=== PATIENT | female | born 1950 | race African-American/Black ===

== ENCOUNTER 2018-11-28 09:21 | Emergency (ER) | payer OTHER ==
--- OUTSIDE RECORDS SUMMARY | 2018-11-28 09:23 | XMS REPORT | Clinical Summary ---
:1950 Author Organization [facility] [employer] Address [address] [place] [address] Care Team Providers Name Role Phone Oscar Andrade MD Primary Care Provider Allergies Not on File Medications Medication Sig Dispensed Refills Start Date End Date Status carvedilol (COREG) TK 1 T PO BID 3 10/16/2016 Active 25 MG tablet WF amLODIPine 3 10/03/2016 Active (NORVASC) 10 mg tablet potassium chloride TK 1 T PO QD 3 09/29/2016 Active (K-DUR) 10 MEQ CR tablet RESTASIS 0.05 % 0 10/22/2016 Active ophthalmic emulsion multivitamin Take 1 capsule 0 Active capsule by mouth daily. BIOTIN ORAL Take by mouth. 0 Active UNABLE TO FIND [place] 7 0 Active Qunol- ultra coq10 [facility] [place] Zinc Balance aspirin (ECOTRIN) Take 81 mg by 0 Active 81 MG enteric mouth daily. coated tablet losartan-hydrochlor Take 1 tablet 10 08/29/2018 Active othiazide (HYZAAR) by mouth 50-12.5 mg per daily. tablet FLAXSEED OIL ORAL Take by mouth. 0 Active candesartan-hydroch TK 1 T PO QD 3 10/16/2016 10/30/2018 Discontinued lorothiazid (ATACAND HCT) 32-12.5 mg per tablet Active Problems Problem Noted Date Multinodular goiter (nontoxic) 11/05/2017 Encounters Date Type Specialty Care Team Description 10/30/2018 Lab Lab Wilfredo Raygoza MD Multinodular goiter (nontoxic) 10/30/2018 Office Visit Endocrinology Wilfredo Raygoza MD Multinodular goiter (nontoxic) (Primary Dx) 10/10/2018 Orders Only Endocrinology Addis Emery MA Multinodular goiter (nontoxic) (Primary Dx) after 11/27/2017 Family History Medical History Relation Name Comments Cancer Mother breast- due to estrogen Relation Name Status Comments Father Alive Mother Alive eye pressure Social History Tobacco Use Types Packs/Day Years Used Date Never Smoker Smokeless Tobacco: Never Used Alcohol Use Drinks/Week oz/Week Comments Yes 1 Glasses of wine 0.6 once a week Sex Assigned at Date Recorded Not on file Job Start Date Occupation Industry Not on file Not on file Not on file Travel History Travel Start Travel End No recent travel history available. Last Filed Vital Signs Vital Sign [place] Time Taken Blood Pressure 144/89 10/30/2018 1:42 PM CDT Pulse 78 10/30/2018 1:42 PM CDT Temperature - - Respiratory Rate - - Oxygen Saturation - - Inhaled Oxygen Concentration - - Weight 91.1 kg (200 lb 12.8 oz) 10/30/2018 1:42 PM CDT Height 162.6 cm (5' 4") 10/30/2018 1:42 PM CDT Body Mass Index 34.47 10/30/2018 1:42 PM CDT Plan of Treatment Date Type Specialty Care Team Description 05/04/2019 Office Visit Endocrinology Wilfredo Raygoza MD [address] [facility] [address] [place] [address] [phone] Health Maintenance Due Date Last Done Comments BREAST CANCER SCREENING 2001 COLONOSCOPY SCREENING 2001 SHINGLES VACCINES (#1) 2001 65+ PNEUMOCOCCAL VACCINE (1 of 2 - PCV13) 2016 INFLUENZA VACCINE 12/18/2018 Procedures Procedure Name Priority Date/Time Associated Diagnosis Comments T4, FREE Routine 10/30/2018 1:57 Multinodular goiter Results for this PM CDT (nontoxic) procedure are in the results section. THYROID STIMULATING Routine 10/30/2018 1:57 Multinodular goiter Results for this HORMONE PM CDT (nontoxic) procedure are in the results section. US THYROID Routine 10/17/2018 2:05 Multinodular goiter Results for this PM CDT (nontoxic) procedure are in the results section. US THYROID Routine 11/29/2017 9:30 Multinodular goiter Results for this AM CDT (nontoxic) procedure are in the results section. after 11/27/2017 Results Thyroid stimulating hormone (10/30/2018 1:57 PM CDT) TSH 1.410 0.450 - 4.500 uIU/mL [facility] Specimen Blood Narrative Performed At Performed at:01 - [facility] [address] [place], [place] [id number] Textile Converter: Blade Gusman MD, Phone:[phone] Performing Organization Address [facility] Phone Number [facility] T4, free (10/30/2018 1:57 PM CDT) T4, free 1.18 0.82 - 1.77 ng/dL [facility] Specimen Blood Narrative Performed At Performed at:01 - [facility] [address] [place], [place] [id number] Textile Converter: Blade Gusman MD, Phone:[phone] Performing Organization Address [facility] Phone Number [facility] US Thyroid (10/17/2018 2:05 PM CDT)Only the most recent of2 resultswithin the time period is included. Specimen Narrative Performed At EXAMINATION:US THYROID [facility] CLINICAL HISTORY:E04.2 Nontoxic multinodular goiter, Multinodular goiter COMPARISON:11/29/2017 IMPRESSION: 1.The right third lobe measures 5.8 x 3.0 x 3.0 cm. The left thyroid lobe measures 4.6 x 1.7 x 1.7 cm. 2.The thyroid gland is diffusely heterogeneous. Slight increase in size of large heterogeneous solid nodule in the lower pole the right thyroid measuring 4.5 x 3.0 cm. Stable versus slight increase in size of complex cystic nodule in the upper pole of the right thyroid measuring 6.6 mm. A 3.5 mm colloid cystic nodule is stable. 3.2 small approximately 3-4 mm cystic nodules in the left thyroid are stable. No new nodules. [facility]-[id number] Procedure Note Hm Interface, Radiology Results Incoming - 10/17/2018 4:29 PM CDT EXAMINATION: US THYROID CLINICAL HISTORY:E04.2 Nontoxic multinodular goiter, Multinodular goiter COMPARISON: 11/29/2017 IMPRESSION: 1. The right third lobe measures 5.8 x 3.0 x 3.0 cm. The left thyroid lobe measures 4.6 x 1.7 x 1.7 cm. 2. The thyroid gland is diffusely heterogeneous. Slight increase in size of large heterogeneous solid nodule in the lower pole the right thyroid measuring 4.5 x 3.0 cm. Stable versus slight increase in size of complex cystic nodule in the upper pole of the right thyroid measuring 6.6 mm. A 3.5 mm colloid cystic nodule is stable. 3. 2 small approximately 3-4 mm cystic nodules in the left thyroid are stable. No new nodules. [facility]-[id number] Performing Organization Address City/State/Zipcode Phone Number [facility] [address] [place] [address] after 11/27/2017 Insurance Payer Benefit Plan / Group Subscriber ID Effective Phone Address Type Dates [facility] xxxxxxxxx 2017-Prese PPO COMMERCIAL nt HMO/POS/PPO MEDICARE MEDICARE PART A AND B xxxxxxxxxx 2016-Pres [place], [place] Medicare ent (Home) [place] [address] Advance Directives Patient has advance care planning documents on file. For more information, please contact:Alonso Briggs[address] [place] [address]
--- NOTE | 2018-11-28 10:03 | RAD REPORT ---
EXAM DESCRIPTION: RAD - Chest Pa And Lat (2 Views) - 11/28/2018 9:58 am CLINICAL HISTORY: COUGH Chest pain. COMPARISON: Chest Pa And Lat (2 Views) dated 06/24/2017; Chest Single View dated 05/17/2017; CHEST PA AND LAT 2 VIEW dated 05/28/2013; CHEST SINGLE VIEW dated 11/02/2011 FINDINGS: Small linear opacities are seen in the lingula suggesting a mild infiltrate/ pneumonia. Th e lungs are otherwise clear. The heart is normal in size. No displaced fractures.
[2018-11-28] MEDS ORDERED: HYDROCODONE/CHLORPHEN 5 ML/OSYR ONE (10:32)
--- NOTE | 2018-11-28 10:42 | EDPHYS ---
Physician Documentation [facility] Name: Peg Henriquez Age: 68 yrs Sex: Female : 1950 Arrival Date: 11/28/2018 Time: 09:24 Bed 15 Private MD: ED Physician Jimmie Sim HPI: 11/28 09:44 This 68 yrs old Black Female presents to ER via Ambulatory with complaints of Cough. pm1 09:44 The patient or guardian reports cough. Onset: The symptoms/episode began/occurred 2 pm1 week(s) ago. Severity of symptoms: in the emergency department the symptoms are unchanged. Modifying factors: The symptoms are alleviated by nothing, the symptoms are aggravated by nothing. Associated signs and symptoms: Pertinent positives: rhinorrhea, bilateral watery eyes. Subjective fever yesterday, Pertinent negatives: chest pain, ear ache, nausea, sore throat, vomiting. The patient has experienced a previous episode, many years ago, walking pneumonia. The patient has not recently seen a physician. Patient with cough for two weeks and came to make sure did not have pneumonia. Historical: - Allergies: 09:49 No Known Allergies; iw - Home Meds: 09:49 amlodipine 10 mg tab 1 tab once daily [Active]; candesartan 32 mg Oral tab 1 tab once iw daily [Active]; carvedilol 25 mg Oral tab 1 tab 2 times per day [Active]; potassium chloride 10 mEq Oral cpER 1 cap once daily [Active]; - PMHx: 09:49 Hypertension; iw - PSHx: 09:49 Hysterectomy; iw - Immunization history:: Adult Immunizations up to date. - Social history:: Smoking status: Patient/guardian denies using tobacco. - Ebola Screening: : Patient negative for fever greater than or equal to 101.5 degrees Fahrenheit, and additional compatible Ebola Virus Disease symptoms Patient denies exposure to infectious person Patient denies travel to an Ebola-affected area in the 21 days before illness onset No symptoms or risks identified at this time. ROS: 10:00 ENT: Negative for injury, pain, and discharge, Neck: Negative for injury, pain, and pm1 swelling, Cardiovascular: Negative for chest pain, palpitations, and edema. 10:00 Abdomen/GI: Negative for abdominal pain, nausea, vomiting, diarrhea, and constipation, Back: Negative for injury and pain, : Negative for injury, bleeding, discharge, and swelling, MS/Extremity: Negative for injury and deformity, Skin: Negative for injury, rash, and discoloration, Neuro: Negative for headache, weakness, numbness, tingling, and seizure. 10:00 Constitutional: Positive for subjective fever yesterday. Has not taken any antipyretics or cough medication today or yesterday, Negative for body aches, poor PO intake. 10:00 Eyes: Positive for tearing bilaterally, Negative for itching, matting, pain. 10:00 Respiratory: Positive for cough, Negative for shortness of breath, wheezing. Exam: 10:00 Constitutional: This is a well developed, well nourished patient who is awake, alert, pm1 and in no acute distress. Head/Face: Normocephalic, atraumatic. Eyes: Pupils equal round and reactive to light, extra-ocular motions intact. Lids and lashes normal. Conjunctiva and sclera are non-icteric and not injected. Cornea within normal limits. Periorbital areas with no swelling, redness, or edema. ENT: Nares patent. No nasal discharge, no septal abnormalities noted. Tympanic membranes are normal and external auditory canals are clear. Oropharynx with no redness, swelling, or masses, exudates, or evidence of obstruction, uvula midline. Mucous membranes moist. Neck: Trachea midline, no thyromegaly or masses palpated, and no cervical lymphadenopathy. Supple, full range of motion without nuchal rigidity, or vertebral point tenderness. No Meningismus. Chest/axilla: Normal chest wall appearance and motion. Nontender with no deformity. No lesions are appreciated. Cardiovascular: Regular rate and rhythm with a normal S1 and S2. No gallops, murmurs, or rubs. No pulse deficits. Respiratory: Lungs have equal breath sounds bilaterally, clear to auscultation and percussion. No rales, rhonchi or wheezes noted. No increased work of breathing, no retractions or nasal flaring. Abdomen/GI: Soft, non-tender, with normal bowel sounds. No distension or tympany. No guarding or rebound. No evidence of tenderness throughout. Back: No spinal tenderness. No costovertebral tenderness. Full range of motion. Skin: Warm, dry with normal turgor. Normal color with no rashes, no lesions, and no evidence of cellulitis. MS/ Extremity: Pulses equal, no cyanosis. Neurovascular intact. Full, normal range of motion. 10:00 Neuro: Orientation: is normal, Motor: is normal, moves all fours, Sensation: is normal, no obvious gross deficits. Vital Signs: 09:36 BP 119 / 75; Pulse 80; Resp 18; Temp 98.9; Pulse Ox 98% ; Weight 90.72 kg; Height 5 ft. ms 4 in. (162.56 cm); Pain 8/10; 09:36 Body Mass Index 34.33 (90.72 kg, 162.56 cm) ms MDM: 09:31 Patient medically screened. pm1 10:14 Data reviewed: vital signs. Data interpreted: Pulse oximetry: on room air is 98 %. pm1 Interpretation: normal. Counseling: I had a detailed discussion with the patient and/or guardian regarding: radiology results, pending flu swab results. 10:41 Counseling: I had a detailed discussion with the patient and/or guardian regarding: the pm1 historical points, exam findings, and any diagnostic results supporting the discharge/admit diagnosis, lab results, radiology results, the need for outpatient follow up, to return to the emergency department if symptoms worsen or persist or if there are any questions or concerns that arise at home. 11/28 09:44 Order name: Flu; Complete Time: 10:39 pm1 11/28 09:44 Order name: Chest Pa And Lat (2 Views) XRAY; Complete Time: 10:11 pm1 Administered Medications: 10:30 Not Given (Provider discretion, patient does not have a ride home.): Tussionex ae4 Pennkinetic ER 5 ml PO once 10:38 Drug: Rocephin (cefTRIAXone) 1 grams Route: IM; Site: right gluteus; ae4 10:56 Follow up: Response: No adverse reaction ae4 Disposition: 12:08 Co-signature as Attending Physician, Jimmie iSm MD. rn Disposition: 11/28/18 10:41 Discharged to Home. Impression: Pneumonia, unspecified organism. - Condition is Stable. - Discharge Instructions: Community-Acquired Pneumonia, Adult. - Prescriptions for Zithromax Z- Tino 250 mg Oral Tablet - take 1 tablet by ORAL route as directed for 5 days Day 1 - take two (2) tablets one time. Day 2, 3, 4 , 5 take one (1) tablet once daily.; 6 tablet. Guaifenesin AC 10- 100 mg/5 mL Oral Liquid - take 10 milliliter by ORAL route every 4 hours As needed; 240 milliliter. - Medication Reconciliation Form, Thank You Letter, Antibiotic Education, Prescription Opioid Use form. - Follow up: Emergency Department; When: As needed; Reason: Worsening of condition. Follow up: Private Physician; When: 2 - 3 days; Reason: Recheck today's complaints, Continuance of care, Re-evaluation by your physician. - Problem is new. - Symptoms have improved. Signatures: Dispatcher [employer] EDMS Carol Mcfadden RN RN Jimmie Kaufman MD MD rn Marinas, Patrick, [employer] pm1 Joshua Ross RN RN ae4 Corrections: (The following items were deleted from the chart) 10:56 10:41 11/28/2018 10:41 Discharged to Home. Impression: Pneumonia, unspecified organism. ae4 Condition is Stable. Forms are Medication Reconciliation Form, Thank You Letter, Antibiotic Education, Prescription Opioid Use. Follow up: Emergency Department; When: As needed; Reason: Worsening of condition. Follow up: Private Physician; When: 2 - 3 days; Reason: Recheck today's complaints, Continuance of care, Re-evaluation by your physician. Problem is new. Symptoms have improved. pm1
--- NOTE | 2018-11-28 10:42 | ER ---
Nurse's Notes [facility] Name: Peg Henriquez Age: 68 yrs Sex: Female : 1950 Arrival Date: 11/28/2018 Time: 09:24 Bed 15 Private MD: Diagnosis: Pneumonia, unspecified organism Presentation: 11/28 09:30 Presenting complaint: Patient states: cough X 2 weeks, now productive, has been taking OTC meds. Transition of care: patient was not received from another setting of care. Onset of symptoms was November 14, 2018. Risk Assessment: Do you want to hurt yourself or someone else? Patient reports no desire to harm self or others. Initial Sepsis Screen: Does the patient meet any 2 criteria? No. Patient's initial sepsis screen is negative. Does the patient have a suspected source of infection? No. Patient's initial sepsis screen is negative. Care prior to arrival: None. 09:30 Method Of Arrival: Ambulatory iw 09:30 Acuity: [facility] 4 iw Triage Assessment: 10:53 General: Appears in no apparent distress. comfortable. General: Behavior is calm, ae4 cooperative, appropriate for age. Pain: Complains of pain in Patient reports chest pain with cough. EENT: No signs and/or symptoms were reported regarding the EENT system. Neuro: Level of Consciousness is awake, alert, obeys commands, Oriented to person, place, time, situation, Appropriate for age. Cardiovascular: Heart tones S1 S2 present Patient's skin is warm and dry. Rhythm is regular. Respiratory: Airway is patent Respiratory effort is even, unlabored, relaxed, Respiratory pattern is regular, symmetrical, Breath sounds are clear bilaterally. Respiratory: Reports cough that is productive, Green mucous. GI: : No signs and/or symptoms were reported regarding the genitourinary system. Derm: Skin is normal. Musculoskeletal: No signs and/or symptoms reported regarding the musculoskeletal system. Historical: - Allergies: :49 No Known Allergies; iw - Home Meds: :49 amlodipine 10 mg tab 1 tab once daily [Active]; candesartan 32 mg Oral tab 1 tab once iw daily [Active]; carvedilol 25 mg Oral tab 1 tab 2 times per day [Active]; potassium chloride 10 mEq Oral cpER 1 cap once daily [Active]; - PMHx: 09:49 Hypertension; iw - PSHx: 09:49 Hysterectomy; iw - Immunization history:: Adult Immunizations up to date. - Social history:: Smoking status: Patient/guardian denies using tobacco. - Ebola Screening: : Patient negative for fever greater than or equal to 101.5 degrees Fahrenheit, and additional compatible Ebola Virus Disease symptoms Patient denies exposure to infectious person Patient denies travel to an Ebola-affected area in the 21 days before illness onset No symptoms or risks identified at this time. Screenin:53 Abuse screen: Denies threats or abuse. Nutritional screening: No deficits noted. ae4 Tuberculosis screening: No symptoms or risk factors identified. Fall Risk None identified. Assessment: 10:32 Reassessment: Patient appears in no apparent distress at this time. Patient and/or ae4 family updated on plan of care and expected duration. Pain level reassessed. General: Behavior is calm, cooperative. Neuro: Level of Consciousness is awake, alert, obeys commands, Oriented to person, place, time, situation, Appropriate for age. Vital Signs: 09:36 BP 119 / 75; Pulse 80; Resp 18; Temp 98.9; Pulse Ox 98% ; Weight 90.72 kg; Height 5 ft. ms 4 in. (162.56 cm); Pain 8/10; 09:36 Body Mass Index 34.33 (90.72 kg, 162.56 cm) ms ED Course: 09:24 Patient arrived in ED. as 09:31 Peter Encinas NP is PHCP. pm1 09:31 Jimmie Sim MD is Attending Physician. pm1 09:32 Joshua Ross RN is Primary Nurse. ae4 09:49 Triage completed. iw 09:50 Arm band placed on. iw 09:55 X-ray completed. Patient tolerated procedure well. Patient moved to radiology via ml wheelchair. Patient moved back from radiology. 09:57 Chest Pa And Lat (2 Views) XRAY In Process Unspecified. EDMS 10:34 Bed in low position. Call light in reach. Side rails up X 1. Pulse ox on. NIBP on. ae4 10:55 No provider procedures requiring assistance completed. Patient did not have IV access ae4 during this emergency room visit. Administered Medications: 10:30 Not Given (Provider discretion, patient does not have a ride home.): Tussionex ae4 Pennkinetic ER 5 ml PO once 10:38 Drug: Rocephin (cefTRIAXone) 1 grams Route: IM; Site: right gluteus; ae4 10:56 Follow up: Response: No adverse reaction ae4 Outcome: 10:41 Discharge ordered by MD. pm1 10:55 Discharged to home ambulatory. ae4 10:55 Condition: stable 10:55 Discharge instructions given to patient, Instructed on discharge instructions, follow up and referral plans. medication usage, Demonstrated understanding of instructions, Prescriptions given X 2. 10:56 Patient left the ED. ae4 Signatures: Dispatcher [employer] EDXi Rutledge Irene, Priscilla Jones RN, ms, Melissa ml Marinas, Patrick, [employer] DIRECTOR pm1 Joshua Ross RN RN ae4
[2018-11-28] MEDS ORDERED: WATER FOR INJ,STERILE 10 ML ONE (10:44)
[2018-11-28] MEDS ORDERED: CEFTRIAXONE 1000 MG/VIAL ONE (10:44)
[2018-11-28 11:03] VITALS: BP 119/75; TEMP 98.9; O2SAT 98
== END 2018-11-28 10:56 | disposition home or self-care (01) ==
LOC: ER 09:21
DX: J18.9 Pneumonia, unspecified organism (principal); I10 Essential (primary) hypertension
CPT/HCPCS: 71046; 87804; 96372; 99284

== ENCOUNTER 2019-03-07 09:18 | Emergency (ER) | payer OTHER ==
[2019-03-07 11:08] LABS: Absolute Lymphocytes (CBC) 0.4 K/uL (0.7-4.9); Basophils % 0.2 % (0-1.3); Hematocrit 43.1 % (36.0-45.0); Lymphocytes % 3.6 % (15.3-44.8); MPV 7.6 fL (7.6-11.3); RBC Red Blood Cell Count 4.95 M/uL (3.86-4.86)
[2019-03-07 11:16] LABS: Protime INR 0.98
[2019-03-07] MEDS ORDERED: NA CHLORIDE 0.9% 1,000 ML ONE (11:20)
[2019-03-07] MEDS ORDERED: ONDANSETRON 4 MG/2 ML VIAL ONE (11:20)
[2019-03-07] MEDS ORDERED: FAMOTIDINE 20 MG/2 ML VIAL IV ONE (11:21)
[2019-03-07 11:31] LABS: ALT/SGPT 26 U/L (12-78); AST/SGOT 18 U/L (15-37); Albumin 3.3 g/dL (3.4-5.0); Alkaline Phosphatase 81 U/L (45-117); BUN Blood Urea Nitrogen 19 mg/dL (7-18); Bicarbonate 27 mmol/L (21-32); Bilirubin Direct 0.1 mg/dL (0-0.2); Bilirubin Total 0.5 mg/dL (0.2-1.0); Glucose Level 109 mg/dL (74-106); Lipase 128 U/L (73-393); Magnesium 2.5 mg/dL (1.8-2.4); Potassium 3.4 mmol/L (3.5-5.1); Protein, Total 7.1 g/dL (6.4-8.2); Sodium Level 138 mmol/L (136-145); Troponin (Emerg Dept Use Only) < 0.02 ng/mL (0.0-0.045)
[2019-03-07 13:28] LABS: Blood Morphology Comment NOT SEEN (NOT SEEN); Platelet Estimate ADEQ; Urine White Blood Cell Casts OK
[2019-03-07] MEDS ORDERED: POTASSIUM 25 MEQ EFFERV TAB ONE (14:08)
--- NOTE | 2019-03-07 14:08 | RAD REPORT ---
EXAM DESCRIPTION: CT - Abdomen Pelvis W Contrast - 03/07/2019 12:09 pm CLINICAL HISTORY: nausea/vomitingabdominal pain, nausea and vomiting COMPARISON: None. TECHNIQUE: Biphasic, helical CT imaging of the abdomen and pelvis was performed following 100 ml non -ionic IV contrast. No oral contrast. All CT scans are performed using dose optimization technique as appropriate and may include automated exposure control or mA/KV adjustment according to patient size. FINDINGS: No suspicious findings in the lung bases. The liver, spleen, and pancreas show no suspicious findings. Gallbladder and biliary tree are also wi thout suspicious finding. Symmetric renal function is seen with no hydronephrosis or suspicious renal mass. No pyelonephritis o r acute parenchymal process. No bladder abnormalities. No adrenal abnormalities. King of the stomach are prominent. No discrete masses seen. Gastric assessment is limited due to the absence of content within the lumen. No dilated small bowel loops. There are fluid-filled loops dist ally. No acute colon process seen. No free air, free fluid or inflammatory stranding. No hernia, mas s or bulky lymphadenopathy. Uterus is absent. Ovaries are absent or atrophic. No adnexal abnormality. Phleboliths are seen along the pelvic floor. No suspicious bony findings. IMPRESSION: No bowel obstruction, free air or surgically emergent finding. A few fluid-filled distal small bowel loops could indicate a nonspecific enteritis.
--- NOTE | 2019-03-07 14:15 | ER ---
Nurse's Notes [facility] Name: Peg Henriquez Age: 68 yrs Sex: Female : 1950 Arrival Date: 03/07/2019 Time: 09:20 Bed 17 Private MD: Diagnosis: Nausea and vomiting Presentation: 03/07 09:28 Presenting complaint: Patient states: Nausea and vomiting that began yesterday evening. ss Patient now reports fatigue. Transition of care: patient was not received from another setting of care. Onset of symptoms was March 06, 2019. Risk Assessment: Do you want to hurt yourself or someone else? Patient reports no desire to harm self or others. Initial Sepsis Screen: Does the patient meet any 2 criteria? No. Patient's initial sepsis screen is negative. Does the patient have a suspected source of infection? No. Patient's initial sepsis screen is negative. Note Pt believes she may have food poisoning from something she ate at work yesterday. Care prior to arrival: None. 09:28 Method Of Arrival: Ambulatory ss 09:28 Acuity: [facility] ss Historical: - Allergies: 09:29 No Known Allergies; ss - Home Meds: 09:35 amlodipine 10 mg tab 1 tab once daily [Active]; candesartan 32 mg Oral tab 1 tab once rb1 daily [Active]; carvedilol 25 mg Oral tab 1 tab 2 times per day [Active]; potassium chloride 10 mEq Oral cpER 1 cap once daily [Active]; - PMHx: 09:29 Hypertension; ss - PSHx: 09:29 Hysterectomy; ss - Immunization history:: Adult Immunizations up to date. - Social history:: Smoking status: Patient/guardian denies using tobacco. - Ebola Screening: : Patient denies exposure to infectious person Patient denies travel to an Ebola-affected area in the 21 days before illness onset. Screenin:35 Abuse screen: Denies threats or abuse. Nutritional screening: No deficits noted. rb1 Tuberculosis screening: No symptoms or risk factors identified. Fall Risk None identified. Assessment: 09:35 General: Appears in no apparent distress. comfortable, Behavior is calm, cooperative, rb1 Reports fatigue for since last night. Denies fever. Pain: Denies pain. Neuro: Level of Consciousness is awake, alert, obeys commands, Oriented to person, place, time, situation. Cardiovascular: Capillary refill < 3 seconds is brisk in bilateral fingers. Respiratory: Airway is patent Respiratory effort is even, unlabored, Respiratory pattern is regular, symmetrical. GI: Abdomen is non-distended, Reports diarrhea, nausea, vomiting, since last night Patient currently denies nausea and vomiting today. : No signs and/or symptoms were reported regarding the genitourinary system. Derm: Skin is dry, Skin is normal, Skin temperature is warm. 10:35 Reassessment: Patient appears in no apparent distress at this time. No changes from rb1 previously documented assessment. 11:30 Reassessment: Patient appears in no apparent distress at this time. Patient and/or rb1 family updated on plan of care and expected duration. Pain level reassessed. Patient is alert, oriented x 3, equal unlabored respirations, skin warm/dry/pink. 12:30 Reassessment: Patient appears in no apparent distress at this time. No changes from rb1 previously documented assessment. at bedside. 13:38 Reassessment: patient is back from ct scan. mg2 14:41 Reassessment: po challenge tolerated. patient felt better. mg2 Vital Signs: 09:29 BP 138 / 90; Pulse 107; Resp 16; Temp 98.2; Pulse Ox 97% ; Weight 90.72 kg; Height 5 ss ft. 3 in. (160.02 cm); Pain 0/10; 10:29 BP 126 / 73; Pulse 99; Resp 17; Pulse Ox 96% on R/A; rb1 11:29 BP 129 / 71; Pulse 99; Resp 16; Pulse Ox 97% on R/A; rb1 12:30 BP 121 / 66; Pulse 98; Resp 18; Pulse Ox 97% on R/A; rb1 13:38 Pulse 101; Resp 18; Pulse Ox 100% on R/A; mg2 14:42 BP 122 / 78; Pulse 90; Resp 18; Temp 98.1(O); Pulse Ox 100% on R/A; Pain 0/10; mg2 09:29 Body Mass Index 35.43 (90.72 kg, 160.02 cm) ED Course: 09:20 Patient arrived in ED. as 09:29 Triage completed. ss 09:29 Arm band placed on left wrist. ss 09:32 Wilner Pavon PA is PHCP. cp 09:32 Tate Mora MD is Attending Physician. cp 09:35 Patient has correct armband on for positive identification. Bed in low position. Call rb1 light in reach. Side rails up X 1. classroom monitor on. Pulse ox on. NIBP on. Warm blanket given. 10:45 Sophia Bustamante, RN is Primary Nurse. rb1 10:55 Initial lab(s) drawn, by me, sent to lab. Inserted saline lock: 22 gauge in right jb1 antecubital area, using aseptic technique. Blood collected. 12:05 CT completed. Patient tolerated procedure well. Patient moved back from CT. bq 12:09 CT Abd/Pelvis - IV Contrast Only In Process Unspecified. EDMS 13:39 No provider procedures requiring assistance completed. mg2 14:42 IV discontinued, intact, bleeding controlled, No redness/swelling at site. Pressure mg2 dressing applied. Administered Medications: 11:32 Drug: Zofran 4 mg Route: IVP; Site: right antecubital; rb1 14:37 Follow up: Response: No adverse reaction; Marked relief of symptoms mg2 11:32 Drug: Pepcid 20 mg Route: IVP; Site: right antecubital; rb1 14:37 Follow up: Response: No adverse reaction; Marked relief of symptoms mg2 11:32 Drug: NS 0.9% 500 ml Route: IV; Rate: bolus; Site: right antecubital; rb1 12:33 Follow up: IV Status: Completed infusion rb1 13:37 Drug: NS 0.9% 500 ml Route: IV; Rate: 125 ml/hr; Site: left antecubital; mg2 14:13 Drug: Potassium Effervescent Tablet 25 mEq Route: PO; mg2 14:37 Follow up: Response: No adverse reaction; Medication administered at discharge. mg2 Output: 13:51 Urine: 1ml (Voided); Total: 1ml. rb1 Outcome: 14:15 Discharge ordered by . cp 14:43 Discharged to home ambulatory, with family. mg2 14:43 Condition: stable 14:43 Discharge instructions given to patient, family, Instructed on discharge instructions, follow up and referral plans. medication usage, Demonstrated understanding of instructions, follow-up care, medications, Prescriptions given X 1. 14:43 Patient left the ED. mg2 Signatures: Dispatcher [employer] EDMS James Zuniga jb1 Swetha Reyez Amelia as Smirch, Shelby, RN RN ss Wilner Pavon PA PA cp Sophia Bustamante RN RN rb1 Ramon Borrero RN RN mg2 Corrections: (The following items were deleted from the chart) 10:52 09:35 GI: Abdomen is non-distended, Reports diarrhea, nausea, vomiting, since last rb1 night rb1
--- NOTE | 2019-03-07 14:16 | EDPHYS ---
Physician Documentation [facility] Name: Peg Henriquez Age: 68 yrs Sex: Female : 1950 Arrival Date: 03/07/2019 Time: 09:20 Bed 17 Private MD: ED Physician Tate Mora HPI: 03/07 10:10 This 68 yrs old Black Female presents to ER via Ambulatory with complaints of cp Vomiting/Diarrhea, Weakness. 10:10 The patient presents to the emergency department with nausea, that is mild, vomiting, cp that is intermittent, diarrhea, that is intermittent. Onset: The symptoms/episode began/occurred yesterday. Possible causes: bad food exposure, [place] at work. Associated signs and symptoms: Pertinent negatives: abdominal pain, constipation, dysuria, fever, GI bleeding, active vomiting. Severity of symptoms: in the emergency department the symptoms have improved moderately. Historical: - Allergies: 09:29 No Known Allergies; ss - Home Meds: 09:35 amlodipine 10 mg tab 1 tab once daily [Active]; candesartan 32 mg Oral tab 1 tab once rb1 daily [Active]; carvedilol 25 mg Oral tab 1 tab 2 times per day [Active]; potassium chloride 10 mEq Oral cpER 1 cap once daily [Active]; - PMHx: 09:29 Hypertension; ss - PSHx: 09:29 Hysterectomy; ss - Immunization history:: Adult Immunizations up to date. - Social history:: Smoking status: Patient/guardian denies using tobacco. - Ebola Screening: : Patient denies exposure to infectious person Patient denies travel to an Ebola-affected area in the 21 days before illness onset. ROS: 10:15 Constitutional: Positive for poor PO intake, Negative for body aches, chills, fever. cp 10:15 Eyes: Negative for injury, pain, redness, and discharge. cp 10:15 ENT: Negative for drainage from ear(s), ear pain, sore throat, difficulty swallowing, difficulty handling secretions. 10:15 Cardiovascular: Negative for chest pain, edema, palpitations. 10:15 Respiratory: Negative for cough, shortness of breath, wheezing. 10:15 Abdomen/GI: Positive for nausea, vomiting, and diarrhea, Negative for abdominal pain, constipation, hematemesis, black/tarry stool, rectal bleeding. 10:15 Back: Negative for pain at rest, pain with movement, radiated pain. 10:15 : Negative for urinary symptoms. 10:15 Neuro: Positive for weakness, Negative for altered mental status, dizziness, headache. 10:15 All other systems are negative. Exam: 10:20 Constitutional: The patient appears in no acute distress, alert, awake, cp non-diaphoretic, non-toxic, well developed, well nourished. 10:20 Head/Face: Normocephalic, atraumatic. cp 10:20 Eyes: Periorbital structures: appear normal, Conjunctiva: normal, no exudate, no injection, Sclera: no appreciated abnormality, Lids and lashes: appear normal, bilaterally. 10:20 ENT: External ear(s): are unremarkable, Nose: is normal, Mouth: Lips: moist, Oral mucosa: pink and intact, moist, Posterior pharynx: is normal, airway is patent, no erythema, no exudate. 10:20 Chest/axilla: Inspection: normal, Palpation: is normal, no crepitus, no tenderness. 10:20 Cardiovascular: Rate: tachycardic, Rhythm: regular, Edema: is not appreciated, JVD: is not appreciated. 10:20 Respiratory: the patient does not display signs of respiratory distress, Respirations: normal, no use of accessory muscles, no retractions, no splinting, no tachypnea, labored breathing, is not present, Breath sounds: are clear throughout, no decreased breath sounds, no stridor, no wheezing. 10:20 Abdomen/GI: Inspection: abdomen appears normal, Bowel sounds: active, all quadrants, Palpation: soft, in all quadrants, nontender, in all quadrants, voluntary guarding, is not appreciated, involuntary guarding, is not appreciated. 10:20 Back: CVA tenderness, is absent. 10:20 Skin: no rash present. 10:20 Neuro: Orientation: to person, place \T\ time. Mentation: is normal, Cerebellar function: is grossly normal, Motor: moves all fours, strength is normal, Sensation: is normal. 13:05 ECG was reviewed by the Attending Physician. cp Vital Signs: 09:29 BP 138 / 90; Pulse 107; Resp 16; Temp 98.2; Pulse Ox 97% ; Weight 90.72 kg; Height 5 ss ft. 3 in. (160.02 cm); Pain 0/10; 10:29 BP 126 / 73; Pulse 99; Resp 17; Pulse Ox 96% on R/A; rb1 11:29 BP 129 / 71; Pulse 99; Resp 16; Pulse Ox 97% on R/A; rb1 12:30 BP 121 / 66; Pulse 98; Resp 18; Pulse Ox 97% on R/A; rb1 13:38 Pulse 101; Resp 18; Pulse Ox 100% on R/A; mg2 14:42 BP 122 / 78; Pulse 90; Resp 18; Temp 98.1(O); Pulse Ox 100% on R/A; Pain 0/10; mg2 09:29 Body Mass Index 35.43 (90.72 kg, 160.02 cm) ss MDM: 09:35 Patient medically screened. cp 10:00 Differential diagnosis: gastritis, diverticulitis, viral gastroenteritis, cp gastroenteritis. 14:42 Data reviewed: vital signs, nurses notes, lab test result(s), radiologic studies, and cp as a result, I will discharge patient. 03/07 10:04 Order name: Basic Metabolic Panel; Complete Time: 11:45 cp 03/07 11:46 Interpretation: Normal except: K 3.4; GLUC 109; BUN 19; GFR 80. cp 03/07 10:04 Order name: CBC with Diff; Complete Time: 13:52 cp 03/07 11:46 Interpretation: Normal except: WBC 11.2; RBC 4.95; SYBIL% 91.7; LYM% 3.6; NEUT A 10.3; cp LYMA 0.4. 03/07 10:04 Order name: LFT's; Complete Time: 11:45 cp 03/07 13:53 Interpretation: Normal except: ALB 3.3; GLOB 3.8; A/G 0.9. cp 03/07 10:04 Order name: Magnesium; Complete Time: 11:45 cp 03/07 13:52 Interpretation: MG 2.5; Reviewed. cp 03/07 10:04 Order name: PT-INR; Complete Time: 11:45 cp 03/07 10:04 Order name: Troponin (emerg Dept Use Only); Complete Time: 11:45 cp 03/07 10:04 Order name: Lipase; Complete Time: 11:45 cp 03/07 11:46 Order name: CT Abd/Pelvis - IV Contrast Only cp 03/07 13:28 Order name: CBC Smear Scan; Complete Time: 13:52 EDMS 03/07 10:04 Order name: EKG; Complete Time: 10:05 cp 03/07 10:04 Order name: Cardiac monitoring; Complete Time: 10:56 cp 03/07 10:04 Order name: EKG - Nurse/Tech; Complete Time: 13:35 cp 03/07 10:04 Order name: IV Saline Lock; Complete Time: 10:56 cp 03/07 10:04 Order name: Labs collected and sent; Complete Time: 10:56 cp 03/07 10:04 Order name: O2 Per Protocol; Complete Time: 10:45 cp 03/07 10:04 Order name: O2 Sat Monitoring; Complete Time: 10:45 cp 03/07 14:05 Order name: PO challenge; Complete Time: 14:13 cp EC:05 Rate is 101 beats/min. Rhythm is regular. MN interval is normal. QRS interval is cp normal. QT interval is normal. Interpreted by me. Reviewed by me. Administered Medications: 11:32 Drug: Zofran 4 mg Route: IVP; Site: right antecubital; rb1 14:37 Follow up: Response: No adverse reaction; Marked relief of symptoms mg2 11:32 Drug: Pepcid 20 mg Route: IVP; Site: right antecubital; rb1 14:37 Follow up: Response: No adverse reaction; Marked relief of symptoms mg2 11:32 Drug: NS 0.9% 500 ml Route: IV; Rate: bolus; Site: right antecubital; rb1 12:33 Follow up: IV Status: Completed infusion rb1 13:37 Drug: NS 0.9% 500 ml Route: IV; Rate: 125 ml/hr; Site: left antecubital; mg2 14:13 Drug: Potassium Effervescent Tablet 25 mEq Route: PO; mg2 14:37 Follow up: Response: No adverse reaction; Medication administered at discharge. mg2 Disposition: 15:39 Co-signature as Attending Physician, Tate Mora MD. gs Disposition: 03/07/19 14:15 Discharged to Home. Impression: Nausea and vomiting. - Condition is Stable. - Discharge Instructions: Dehydration, Adult, Nausea and Vomiting, Adult. - Prescriptions for Zofran 4 mg Oral Tablet - take 1 tablet by ORAL route every 12 hours As needed; 20 tablet. - Medication Reconciliation Form, Thank You Letter, Antibiotic Education, Prescription Opioid Use form. - Follow up: Private Physician; When: 2 - 3 days; Reason: Recheck today's complaints. - Problem is new. - Symptoms have improved. Signatures: Dispatcher [employer] EDMS Maggie Alvarez RN RN Wilner Jose PA PA cp Barber, Rebecca, RN RN rb1 Tate Mora MD MD Ramon Borrero RN RN mg2 Corrections: (The following items were deleted from the chart) 14:43 14:15 03/07/2019 14:15 Discharged to Home. Impression: Nausea and vomiting. Condition mg2 is Stable. Forms are Medication Reconciliation Form, Thank You Letter, Antibiotic Education, Prescription Opioid Use. Follow up: Private Physician; When: 2 - 3 days; Reason: Recheck today's complaints. Problem is new. Symptoms have improved. cp
[2019-03-07 14:58] VITALS: O2SAT 100
[2019-03-07 14:59] VITALS: BP 122/78; TEMP 98.1
--- NOTE | 2019-03-08 06:11 | EKG ---
Test Date: 2019-03-07 Test Time: 12:57:14 Waxer Tender: NEW MEASUREMENT RESULTS: Intervals: Rate: 101 DE: 194 QRSD: 72 QT: 336 QTc: 435 [place]: P: 39 DE: 194 QRS: -12 T: 30 INTERPRETIVE STATEMENTS: Sinus tachycardia Possible Left atrial enlargement Borderline ECG Compared to ECG 11/02/2011 10:46:10 Sinus rhythm no longer present ST (T wave) deviation no longer present Electronically Signed On 03-08-19 06:09:51 CDT by Lionel De Guzman
== END 2019-03-07 14:43 | disposition home or self-care (01) ==
LOC: ER 09:18
DX: R11.2 Nausea with vomiting, unspecified (principal); I10 Essential (primary) hypertension
CPT/HCPCS: 96361; 93005; 85025; 80048; 36415; 83735; 85610; 80076; 84484; 83690; 74177; 96375; 96374; 99285; Q9967; J7030; J2405

== ENCOUNTER 2020-12-16 09:30 | Emergency (ER) | payer OTHER, MEDICARE ==
--- OUTSIDE RECORDS SUMMARY | 2020-12-16 09:33 | XMS REPORT | Continuity of Care Document ---
:1950 Author Organization [facility] t Address [address] Zheng[address] [place] [address] Care Team Providers Name Role Phone Dequan Andrade MD Primary Care Physician Jaret CARDOSO MDemetris Attending Clinician Rupert LINCOLN Attending Clinician Unavailable Payers Payer Name Policy Type Policy Effective Date Expiration Date Sour ce Number MEDICAREMEDICARE PART [id number] [facility] [id number] 2016 [place] [id number] 2020 [facility] [id number] 00:00:00 Hos pital 2020-PresentComme rcial Problems Condition Condition Condition Status Onset Resolution Last Treating Co mments Source Name Details Category Date Date Treatment Clinician Date 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 Family History Family Member Diagnosis Comments Start Date Stop Date Source Natural father [facility] Natural mother Cancer [facility] Social History Social Habit Start Date Stop Date Quantity Comments Source Exposure to Not sure [facility] SARS-CoV-2 [facility] (event) Tobacco use and 2020-12-15 2020-12-15 Never used [facility] exposure 00:00:00 00:00:00 Hospital Alcohol intake 2020-12-15 2020-12-15 Current drinker [facility] 00:00:00 00:00:00 of alcohol Hospital (finding) Alcohol Comment 2016-10-26 2016-10-26 once a week [facility] 00:00:[facility] 00:[facility]:00 Hospital Sex Assigned At [birth year] [facility] 00:00:00 00:00:00 Hospital Smoking Status Start Date Stop Date Source Never smoker [facility] Medications Ordered Filled Start Stop Current Ordering Indication Dosage Frequency Signature Comments Components Source Medication Medication Date Date Medication? Clinician (SIG) Name Name multivitami Yes 1{capsu QD Take 1 M ethodi n capsule 12-15 le} capsule by st 15:07: mouth [facility] 16 daily. l BIOTIN ORAL Yes Take by Met hodi 12-[address] 15:07: Hospita 16 l UNABLE TO Yes [place] 7 [facility] di FIND 12-[address] 15:07: Balance [facility] 16 l aspirin Yes 81mg QD Take 81 mg Meth moncho (ECOTRIN) 12-[address] 81 MG 15:07: daily. Hospita enteric 16 l coated tablet FLAXSEED Yes Take by Method i OIL ORAL 12-[address] 15:07: Hospita 16 l TURMERIC Yes Take by Method i ORAL 12-[address] 15:07: Hospita 16 l calcium Yes Take by Method[facility] carbonate/v 12-[address] itamin D3 15:07: Hospita (CALTRATE 16 l 600 PLUS D ORAL) hydrALAZINE Yes 20mg Q.5D Take 20 mg [facility] (APRESOLINE [address] ) 10 MG 00:00: (two) Hospita tablet 00 times a l day. Xiidra 5 % Yes 1[drp] Q.5D Administer [facility] dropperette 09-[address] 00:00: both eyes [facility]ospita 00 2 (two) l times a day. Meloxicam Meloxicam 0 2020- No Madhu [address] [facility] 11-[facility]16 [facility] losartan-hy Yes 1{tbl} QD Take 1 Me thodi drochloroth 4-[address] iazide 00:00: mouth [facility]ospita (HYZAAR) 00 daily. l 50-12.5 mg per tablet RESTASIS Yes [facility] 0.05 % 6-05 st ophthalmic 00:00: Hospita emulsion 00 l carvedilol Yes TK 1 T PO Me thodi (COREG) 25 5-[address] MG tablet 00:00: Hospita 00 l amLODIPine Yes [facility] (NORVASC) 5-17 st 10 mg 00:00: Hospita tablet 00 l potassium Yes TK 1 T PO Met hodi chloride 5-[address] (K-DUR) 10 00:00: Hospita MEQ CR 00 l tablet Amlodipine Amlodipine Yes Madhu not [facility] Besylate Besylate [facility] defined [facility] Klor-Con 10 Klor-Con 10 Yes Madhu not [facility] Colon defined [facility] Carvedilol Carvedilol Yes Madhu not [facility] defined [facility] Baby Baby Yes Madhu not [facility] Aspirin Aspirin [facility] Cephalexin Cephalexin Yes Madhu not [facility] Colon defined [facility] Guaifenesin Guaifenesin Yes Madhu not [facility] -Codeine -Codeine [facility] defined [facility] Azithromyci Azithromyci Yes Madhu not [facility] n n Colon defined [facility]ics Xiidra Xiidra Yes Madhu not [facility] Colon defined [facility] Losartan Losartan Yes Madhu not [facility] Potassium-H Potassium-H [facility] defined [facility] Vital Signs Vital Name Observation Time Observation Value Comments Source Systolic blood 2020-12-15 15:03:00 132 mm[Hg] [facility] pressure Diastolic blood 2020-12-15 15:03:00 73 mm[Hg] [facility] pressure Heart rate 2020-12-15 15:03:00 78 /min [facility] Body height 2020-12-15 15:03:00 162.6 cm [facility] Body weight 2020-12-15 15:03:00 92.715 kg [facility] BMI 2020-12-15 15:03:00 35.09 kg/m2 [facility] Procedures Procedure Date / Time Performing Clinician Source Performed THYROID PEROXIDASE 2020-12-15 15:35[facility]ABOL[facility] 2020-12-15 15:35:00 Wilfredo Raygoza [facility] PANEL T4, FREE 2020-12-15 15:35:00 Wilfredo Raygoza [facility] THYROID STIMULATING 2020-12-15 15:35:00 Wilfredo Raygoza [facility] HORMONE US THYROID 2020-11-25 18:28:53 Wilfredo Raygoza [facility] Plan of Care Planned Activity Planned Date Details Comments Source Future Scheduled Test Hepatitis C screening [facility] (procedure) [code = 678297251] Future Scheduled Test BREAST CANCER SCREENING [facility] [code = BREAST CANCER SCREENING] Future Scheduled Test COLONOSCOPY SCREENING [facility] [code = COLONOSCOPY SCREENING] Future Scheduled Test SHINGLES VACCINES (#1) [facility] [code = SHINGLES VACCINES (#1)] Future Scheduled Test 65+ PNEUMOCOCCAL [facility] VACCINE (1 of 1 - PPSV23) [code = 65+ PNEUMOCOCCAL VACCINE (1 of 1 - PPSV23)] Future Scheduled Test INFLUENZA VACCINE [code [facility] = INFLUENZA VACCINE] Encounters Start End Encounter Admission Attending Care Care Encounter Source Date/Time Date/Time Type Type Clinicians Facility Department ID 2020-12-15 2020-12-15 Office Jaret, 1.2.840.1 [id number] [place] 09:59:03 10:19:03 Visit Wilfredo Dooley [address]16.1.[address] 3.430.2.7 Hospit a .3.520456 l .8 2020-12-15 2020-12-15 Outpatient [facility] [id number] [place] 00:00:00 00:00:[address] 2020-12-15 2020-12-15 Outpatient PETAK, [facility] [id number] [place] 00:00:00 00:00:00 WILFREDO [address] 2020-12-15 2020-12-15 Travel 1.2.840.1 [id number] [facility] 00:00:00 00:00:[address] 3.430.2.7 0.2.7.3.698 Ho spita .3.737830 084.8 l .8 2020-11-25 2020-11-25 Outpatient PETSD, [facility] [id number] [address] [place] 00:00:00 00:00:00 WILFREDO [address] 2020-11-25 2020-11-25 Travel 1.2.840.1 [id number] [facility] 00:00:00 00:00:[address] 3.430.2.7 0.2.7.3.698 Ho spita .3.963013 084.8 l .8 2020-11-14 2020-11-14 James Emery 1.2.840.1 [id number] [facility] 00:00:00 00:00:00 Only Addis [address]013[address]1.[address] 3.430.2.7 Hospit a .3.342239 l .8 2020-11-11 2020-11-11 Silvestre Emery 1.2.840.1 [id number] [facility] 00:00:00 00:00:[address] 3.430.2.7 Hospit a .3.840681 l .8 2020-11-07 2020-11-07 Outpatient [facility] [id number] [facility] 2020-11-01 2020-11-01 Outpatient [facility] [id number] [facility] 2020-10-24 2020-10-24 Outpatient [facility] [id number] [facility] 2020-09-12 2020-09-12 Outpatient [facility] [id number] [facility] 2020-09-12 2020-09-12 Outpatient [facility] [id number] [facility] 2020-09-06 2020-09-06 Outpatient [facility] [id number] [facility] 2020-06-28 2020-06-28 Outpatient [facility] [id number] [facility] 2020-04-21 2020-04-21 Outpatient [facility] [id number] [facility] 2020-04-07 2020-04-07 Outpatient [facility] [id number] [facility] 2020-04-01 2020-04-01 Outpatient [facility] [id number] [facility] 2020-03-21 2020-03-21 Outpatient [facility] [id number] [facility] 2020-03-03 2020-03-03 Outpatient [facility] [id number] [facility] 2019-11-03 2019-11-03 [facility] [id number] 14:30:00 14:30:00 [facility] 2019-07-10 2019-07-10 Outpatient [facility] [id number] [place] 00:00:00 00:00:00 WILFREDO [address] Results This patient has no known results.
[2020-12-16] MEDS ORDERED: NA CHLORIDE 0.9% 1,000 ML ONE (10:39)
[2020-12-16 10:47] LABS: Absolute Lymphocytes (CBC) 1.7 K/uL (0.7-4.9); Basophils % 0.4 % (0-1.3); Hematocrit 38.8 % (36.0-45.0); Lymphocytes % 30.9 % (15.3-44.8); RBC Red Blood Cell Count 4.48 M/uL (3.86-4.86)
[2020-12-16 10:51] LABS: Protime INR 1.04
[2020-12-16 11:05] LABS: ALT/SGPT 30 U/L (12-78); AST/SGOT 22 U/L (15-37); Albumin 3.4 g/dL (3.4-5.0); Alkaline Phosphatase 69 U/L (45-117); BUN Blood Urea Nitrogen 16 mg/dL (7-18); Bicarbonate 28 mmol/L (21-32); Bilirubin Direct 0.1 mg/dL (0-0.2); Bilirubin Total 0.4 mg/dL (0.2-1.0); Glucose Level 91 mg/dL (74-106); Lipase 63 U/L (73-393); Magnesium 2.3 mg/dL (1.8-2.4); NT PRO-BNP 43 pg/mL (<125); Potassium 3.3 mmol/L (3.5-5.1); Protein, Total 6.9 g/dL (6.4-8.2); Sodium Level 138 mmol/L (136-145); Troponin (Emerg Dept Use Only) < 0.02 ng/mL (0.0-0.045)
[2020-12-16 11:08] LABS: SARS-COV-2 RT PCR NEGATIVE (NEGATIVE)
--- NOTE | 2020-12-16 11:44 | RAD REPORT ---
EXAM DESCRIPTION: Evelyn Single View12/16/2020 10:56 am CLINICAL HISTORY: Cough COMPARISON: 2019 FINDINGS: The lungs appear clear of acute infiltrate. The heart is mildly enlarged IMPRESSION: No acute abnormalities displayed
[2020-12-16 11:49] LABS: Urine Blood Negative (Negative); Urine Glucose Negative (Negative); Urine Protein Negative (Negative)
--- NOTE | 2020-12-16 12:04 | RAD REPORT ---
EXAM DESCRIPTION: CT - Chest For Pe Angio - 12/16/2020 11:24 am CLINICAL HISTORY: Shortness of breath COMPARISON: None. TECHNIQUE: Dynamically enhanced axial 3 mm thick images of the chest were obtained during administra tion of <100> mL Isovue 370 IV contrast. Coronal and oblique reconstruction images were generated and reviewed. Exam utilizes a protocol for optimal evaluation of pulmonary arterial tree. Maximum intensity projections 3D imaging was utilized All CT scans are performed using dose optimization technique as appropriate and may include automated exposure control or mA/KV adjustment according to patient size. FINDINGS: A pulmonary embolus is not seen. A thoracic aortic aneurysm is not noted. A pleural effusion is not seen. A pericardial effusion is not seen. A lung consolidation is not present. 7 millimeter subpleural nodule left lower lobe. 30 millimeter nodule containing a small calcification abuts the posterior aspect of the lower pole ri ght lobe of the thyroid gland IMPRESSION: Negative for a pulmonary embolism. 7 millimeter subpleural nodule left lower lobe. A followup CT chest in 6 months recommended to assess stability 30 millimeter nodule containing a small calcification abuts the posterior aspect of the lower pole ri ght lobe of the thyroid gland. Nonemergent thyroid ultrasound is recommended
[2020-12-16] MEDS ORDERED: POTASSIUM 25 MEQ EFFERV TAB ONE (12:05)
--- NOTE | 2020-12-16 12:20 | ER ---
Nurse's Notes [facility] Name: Peg Henriquez Age: 70 yrs Sex: Female : 1950 Arrival Date: 12/16/2020 Time: 09:32 Bed 25 Private MD: Dorian Andrade C Diagnosis: Dyspnea;Cough;UTI/ Urinary tract infection, site not specified;Solitary pulmonary nodule-7 mm left lower lobe Presentation: 12/16 09:35 Chief complaint: Patient states: i have a history of pneumonia. about a week ago i tw2 started with a slight shortness of breathe. my nose is stopped up. i think it could be allergies because of my history. i just decided to come because my said he seemed like i got tired moving around and walking. Coronavirus screen: congestion, runny nose, shortness of breath, Client presents with at least one sign or symptom that may indicate coronavirus-19. Standard/surgical mask placed on the client. Provider contacted for isolation considerations. Ebola Screen: Patient denies travel to an Ebola-affected area in the 21 days before illness onset. Initial Sepsis Screen: Does the patient meet any 2 criteria? No. Patient's initial sepsis screen is negative. Does the patient have a suspected source of infection? No. Patient's initial sepsis screen is negative. Risk Assessment: Do you want to hurt yourself or someone else? Patient reports no desire to harm self or others. Onset of symptoms was December 16, 2020. 09:35 Method Of Arrival: Ambulatory tw2 09:35 Acuity: [facility] 3 tw2 Triage Assessment: 09:39 General: Appears in no apparent distress. obese, well groomed, Behavior is calm, tw2 cooperative, appropriate for age. Pain: Denies pain. Respiratory: Reports shortness of breath at rest on exertion Onset: The symptoms/episode began/occurred yesterday, the patient has mild shortness of breath Denies cough. Historical: - Allergies: 09:38 No Known Allergies; tw2 - Home Meds: 09:38 carvedilol 25 mg Oral tab 1 tab 2 times per day [Active]; candesartan 32 mg Oral tab 1 tw2 tab once daily [Active]; potassium chloride 10 mEq Oral cpER 1 cap once daily [Active]; amlodipine 10 mg tab 1 tab once daily [Active]; hydrochlorothiazide 12.5 mg Oral cap 1 cap once daily [Active]; - PMHx: 09:38 Hypertension; tw2 - PSHx: 09:38 None; tw2 - Immunization history:: Client reports receiving the 2nd dose of the Covid vaccine. - Social history:: Smoking status: Patient denies any tobacco usage or history of. Screenin:29 Abuse screen: Denies threats or abuse. Nutritional screening: No deficits noted. tw2 Tuberculosis screening: No symptoms or risk factors identified. Fall Risk None identified. Assessment: 10:30 General: Appears in no apparent distress. comfortable, Behavior is calm, cooperative, tr6 appropriate for age. Pain: Denies pain. Neuro: No deficits noted. Cardiovascular: No deficits noted. Respiratory: Parent/caregiver reports the patient having shortness of breath. GI: No deficits noted. : No deficits noted. EENT: No deficits noted. Derm: No deficits noted. Musculoskeletal: No deficits noted. 10:36 Cardiovascular: No deficits noted. Rhythm is sinus rhythm. Respiratory: Airway is tr6 patent Respiratory effort is even, unlabored, relaxed, Breath sounds are clear. Vital Signs: 09:35 BP 135 / 81; Pulse 82; Resp 17; Temp 97.9(TE); Pulse Ox 99% on R/A; Weight 92.53 kg tw2 (R); Height 5 ft. 4 in. (162.56 cm); 10:30 BP 139 / 76; Pulse 89; Resp 18; Pulse Ox 98% on R/A; tr6 11:00 BP 126 / 74; Pulse 62; Resp 18; Pulse Ox 98% on R/A; tr6 12:00 BP 154 / 84; Pulse 62; Resp 18; Pulse Ox 100% on R/A; tr6 09:35 Body Mass Index 35.02 (92.53 kg, 162.56 cm) tw2 ED Course: 09:32 Patient arrived in ED. mr 09:32 Dorian Andrade MD is Private Physician. mr 09:38 Triage completed. tw2 09:40 Arm band placed on. tw2 09:49 Wilner Vásquez MD is Attending Physician. barak 09:49 Placed in gown. Bed in low position. Call light in reach. consulting practice manager on. Pulse ox tw2 on. NIBP on. 10:00 Danielle Mojica RN is Primary Nurse. tr6 10:35 Inserted saline lock: 18 gauge in left antecubital area, using aseptic technique. Blood tr6 collected. 10:35 EKG done, by ED staff, reviewed by Wilner Vásquez MD. 3 10:36 No provider procedures requiring assistance completed. tr6 10:56 XRAY Chest (1 view) In Process Unspecified. EDMS 11:24 CT Chest For PE Angio In Process Unspecified. EDMS 12:15 Inserted saline lock: 20 gauge in right antecubital area, using aseptic technique. dh3 12:19 Dorian Andrade MD is Referral Physician. [facility] 12:38 Lane Thorne MD is Referral Physician. barak 12:39 IV discontinued, intact, bleeding controlled, No redness/swelling at site. Pressure tr6 dressing applied. Administered Medications: 10:35 Drug: NS 0.9% 1000 ml Route: IV; Rate: 125 ml/hr; Site: left antecubital; tr6 11:44 Drug: Potassium Effervescent Tablet 25 mEq Route: PO; tr6 12:13 Follow up: Response: No adverse reaction tr6 Outcome: 12:20 Discharge ordered by . barak 12:39 Discharged to home ambulatory, pt refused wheelchair at this time tr6 12:39 Condition: stable 12:39 Discharge instructions given to patient, Instructed on discharge instructions, follow up and referral plans. medication usage, safety practices, Demonstrated understanding of instructions, follow-up care, medications. 12:57 Patient left the ED. tr6 Signatures: Dispatcher [employer] Wilner Salgado MD MD cha Rivera, Mary mr Wise, Tara, RN RN [facility] Priscilla Emery [facility] Matilda Medel formerly [facility] Danielle Mojica RN RN tr6 Corrections: (The following items were deleted from the chart) 10:46 10:37 EKG done, by ED staff, reviewed by Wilner Vásquez MD [place] [id number] 12:50 12:39 Discharged to home ambulatory, tr6 tr6
--- NOTE | 2020-12-16 12:20 | EDPHYS ---
Physician Documentation [facility] Name: Peg Henriquez Age: 70 yrs Sex: Female : 1950 Arrival Date: 12/16/2020 Time: 09:32 Bed 25 Private MD: Dorian Andrade C ED Physician Wilner Váqsuez HPI: 12/16 10:08 This 70 yrs old Black Female presents to ER via Ambulatory with complaints of Shortness barak Of Breath. 10:08 The patient has shortness of breath at rest, with light activity. Onset: The barak symptoms/episode began/occurred 7 day(s) ago. Duration: The symptoms are continuous, and are unchanged since they started. The patient's shortness of breath is aggravated by coughing, light activity. Associated signs and symptoms: Pertinent positives: mild dyspnea. Severity of symptoms: At their worst the symptoms were mild in the emergency department the symptoms are unchanged. The patient has experienced similar episodes in the past, a few times. Historical: - Allergies: 09:38 No Known Allergies; tw2 - Home Meds: 09:38 carvedilol 25 mg Oral tab 1 tab 2 times per day [Active]; candesartan 32 mg Oral tab 1 tw2 tab once daily [Active]; potassium chloride 10 mEq Oral cpER 1 cap once daily [Active]; amlodipine 10 mg tab 1 tab once daily [Active]; hydrochlorothiazide 12.5 mg Oral cap 1 cap once daily [Active]; - PMHx: 09:38 Hypertension; tw2 - PSHx: 09:38 None; tw2 - Immunization history:: Client reports receiving the 2nd dose of the Covid vaccine. - Social history:: Smoking status: Patient denies any tobacco usage or history of. ROS: 10:13 Constitutional: Negative for fever, chills, and weight loss, Eyes: Negative for injury, barak pain, redness, and discharge, ENT: Negative for injury, pain, and discharge, Neck: Negative for injury, pain, and swelling, Cardiovascular: Negative for chest pain, palpitations, and edema, Abdomen/GI: Negative for abdominal pain, nausea, vomiting, diarrhea, and constipation, Back: Negative for injury and pain, : Negative for injury, bleeding, discharge, and swelling, MS/Extremity: Negative for injury and deformity, Skin: Negative for injury, rash, and discoloration, Neuro: Negative for headache, weakness, numbness, tingling, and seizure, Psych: Negative for depression, anxiety, suicide ideation, homicidal ideation, and hallucinations, Allergy/Immunology: Negative for hives, rash, and allergies, Endocrine: Negative for neck swelling, polydipsia, polyuria, polyphagia, and marked weight changes, Hematologic/Lymphatic: Negative for swollen nodes, abnormal bleeding, and unusual bruising. 10:13 Respiratory: Positive for cough, with no reported sputum. 10:13 Respiratory: Positive for shortness of breath, at rest. 10:13 Abdomen/GI: Negative for abdominal pain. 10:13 Back: Negative for injury or acute deformity. Exam: 10:13 Constitutional: This is a well developed, well nourished patient who is awake, alert, barak and in no acute distress. Head/Face: Normocephalic, atraumatic. Eyes: Pupils equal round and reactive to light, extra-ocular motions intact. Lids and lashes normal. Conjunctiva and sclera are non-icteric and not injected. Cornea within normal limits. Periorbital areas with no swelling, redness, or edema. ENT: Nares patent. No nasal discharge, no septal abnormalities noted. Tympanic membranes are normal and external auditory canals are clear. Oropharynx with no redness, swelling, or masses, exudates, or evidence of obstruction, uvula midline. Mucous membranes moist. Neck: Trachea midline, no thyromegaly or masses palpated, and no cervical lymphadenopathy. Supple, full range of motion without nuchal rigidity, or vertebral point tenderness. No Meningismus. Chest/axilla: Normal chest wall appearance and motion. Nontender with no deformity. No lesions are appreciated. Cardiovascular: Regular rate and rhythm with a normal S1 and S2. No gallops, murmurs, or rubs. Normal PMI, no JVD. No pulse deficits. Respiratory: Lungs have equal breath sounds bilaterally, clear to auscultation and percussion. No rales, rhonchi or wheezes noted. No increased work of breathing, no retractions or nasal flaring. Abdomen/GI: Soft, non-tender, with normal bowel sounds. No distension or tympany. No guarding or rebound. No evidence of tenderness throughout. Back: No spinal tenderness. No costovertebral tenderness. Full range of motion. Skin: Warm, dry with normal turgor. Normal color with no rashes, no lesions, and no evidence of cellulitis. MS/ Extremity: Pulses equal, no cyanosis. Neurovascular intact. Full, normal range of motion. Neuro: Awake and alert, GCS 15, oriented to person, place, time, and situation. Cranial nerves II-XII grossly intact. Motor strength 5/5 in all extremities. Sensory grossly intact. Cerebellar exam normal. Normal gait. Psych: Awake, alert, with orientation to person, place and time. Behavior, mood, and affect are within normal limits. 10:16 Musculoskeletal/extremity: DVT Exam: No signs of deep vein thrombosis. no pain, no barak swelling, no tenderness, negative Homans' sign noted on exam, no appreciated bluish discoloration, no erythema, no increased warmth. 10:35 ECG was reviewed by the Attending Physician. [facility] Vital Signs: 09:35 BP 135 / 81; Pulse 82; Resp 17; Temp 97.9(TE); Pulse Ox 99% on R/A; Weight 92.53 kg tw2 (R); Height 5 ft. 4 in. (162.56 cm); 10:30 BP 139 / 76; Pulse 89; Resp 18; Pulse Ox 98% on R/A; tr6 11:00 BP 126 / 74; Pulse 62; Resp 18; Pulse Ox 98% on R/A; tr6 12:00 BP 154 / 84; Pulse 62; Resp 18; Pulse Ox 100% on R/A; tr6 09:35 Body Mass Index 35.02 (92.53 kg, 162.56 cm) tw2 MDM: 09:49 Patient medically screened. [facility] 10:16 Differential diagnosis: Anemia asthma, CHF exacerbation, Chronic Obstructive Pulmonary barak Disease pulmonary edema, Pulmonary Embolism reactive airway disease, Sepsis Unstable Angina. Antibiotic administration: Not indicated. The patient's Wells Deep Vein Thrombosis Score was calculated as follows: Total Score: 0-2 Pts- Low Risk. The patient's pulmonary embolism risk score was calculated as follows: Total Score: 0-2 points. This patient was found to be at low risk for a pulmonary embolism by using the Well's assessment criteria. Immunization status: Pneumococcal vaccine: Influenza vaccine: Data reviewed: vital signs, nurses notes, lab test result(s), EKG, radiologic studies, CT scan, plain films. Data interpreted: medical imaging specialist: rate is 82 beats/min, rhythm is regular, Pulse oximetry: on room air. Test interpretation: by ED physician or midlevel provider: ECG, plain radiologic studies. Counseling: I had a detailed discussion with the patient and/or guardian regarding: the historical points, exam findings, and any diagnostic results supporting the discharge/admit diagnosis, lab results, radiology results. 12/16 10:00 Order name: Basic Metabolic Panel [facility] 12/16 10:00 Order name: CBC with Diff [facility] 12/16 10:00 Order name: LFT's 12/16 10:00 Order name: Magnesium [facility] 12/16 10:00 Order name: NT PRO-BNP; Complete Time: 11:17 [facility] 12/16 10:00 Order name: PT-INR; Complete Time: 11: [facility] 12/16 10:00 Order name: Troponin (emerg Dept Use Only); Complete Time: 11:17 [facility] 12/16 10:00 Order name: Blood Culture Adult (2) [facility] 12/16 10:00 Order name: Lipase; Complete Time: 11:17 [facility] 12/16 10:00 Order name: Lactate; Complete Time: 12:15 [facility] 12/16 10:00 Order name: Procalcitonin; Complete Time: 11:17 [facility] 12/16 10:00 Order name: D-Dimer; Complete Time: 11:02 [facility] 12/16 10:00 Order name: XRAY Chest (1 view); Complete Time: 12:15 [facility] 12/16 10:00 Order name: EKG; Complete Time: 10: [facility] 12/16 10:00 Order name: Cardiac monitoring; Complete Time: 10:35 [facility] 12/16 10:00 Order name: EKG - Nurse/Tech; Complete Time: 10:35 [facility] 12/16 10:00 Order name: IV Saline Lock; Complete Time: 10:35 [facility] 12/16 10:00 Order name: Labs collected and sent; Complete Time: 10:35 [facility] 12/16 10:01 Order name: Basic Metabolic Panel; Complete Time: 11:17 [facility] 12/16 10:01 Order name: CBC with Automated Diff; Complete Time: 11:02 [facility] 12/16 10:01 Order name: Liver (Hepatic) Function; Complete Time: 11:17 [facility] 12/16 10:01 Order name: Magnesium; Complete Time: 11:17 EDMS 12/16 11:02 Order name: CT Chest For PE Angio; Complete Time: 12:15 [facility] 12/16 11:09 Order name: COVID-19/FLU A+B; Complete Time: 11:17 [facility] 12/16 11:49 Order name: Urine Dipstick-Ancillary; Complete Time: 12:15 [facility] 12/16 11:59 Order name: Urine Culture dh3 12/16 10:00 Order name: O2 Per Protocol; Complete Time: 10: [facility] 12/16 10:00 Order name: O2 Sat Monitoring; Complete Time: 10: [facility] 12/16 10:00 Order name: Urine Dipstick-Ancillary (obtain specimen); Complete Time: 12:14 [facility] EC:35 Rate is 64 beats/min. Rhythm is regular. QRS [place] is Normal. SC interval is normal. QRS barak interval is normal. QT interval is normal. No Q waves. T waves are Normal. No ST changes noted. Clinical impression: Normal ECG and No evidence of ischemia. Interpreted by me. Reviewed by me. Administered Medications: 10:35 Drug: NS 0.9% 1000 ml Route: IV; Rate: 125 ml/hr; Site: left antecubital; tr6 11:44 Drug: Potassium Effervescent Tablet 25 mEq Route: PO; tr6 12:13 Follow up: Response: No adverse reaction tr6 Disposition Summary: 12/16/20 12:20 Discharge Ordered Location: Home barak Problem: new barak Symptoms: have improved barak Condition: Stable barak Diagnosis - Dyspnea barak - Cough barak - UTI/ Urinary tract infection, site not specified barak - Solitary pulmonary nodule - 7 mm left lower lobe barak Followup: barak - With: Dorian Andrade MD - When: 1 - 2 days - Reason: Recheck today's complaints, Continuance of care, Re-evaluation by your physician Followup: barak - With: Lane Thorne MD - When: 2 - 3 days - Reason: Recheck today's complaints, Re-evaluation by your physician Discharge Instructions: - Discharge Summary Sheet barak - Dysuria barak - Urinary Tract Infection, Adult barak - Urinary Tract Infection, Adult, Opjn-[id number] barak - Cough, Adult, Fzuv-xl-Rifw barak - Aspirin and Your Heart barak - Cough, Adult barak - Pulmonary Nodule barak Forms: - Medication Reconciliation Form barak - Thank You Letter barak - Antibiotic Education barak - Prescription Opioid Use [facility] Prescriptions: - Augmentin 875-125 mg Oral Tablet - take 1 tablet by ORAL route every 12 hours for 5 days; 10 tablet; Refills: 0, barak Product Selection Permitted Signatures: Dispatcher [employer] EDWilner Shen MD MD cha Wise, Tara RN RN tw2 Danielle Mojica RN RN tr6 Corrections: (The following items were deleted from the chart) 10:25 10:01 CORONAVIRUS+MR.LAB.BRZ ordered. EDMS EDMS 10:25 10:01 Influenza Screen (A \T\ B)+BA.LAB.BRZ ordered. EDMS EDMS
[2020-12-16 13:08] VITALS: TEMP 97.9
[2020-12-16 13:13] VITALS: BP 154/84; O2SAT 100
== END 2020-12-16 12:57 | disposition home or self-care (01) ==
LOC: ER 09:30
DX: R06.02 Shortness of breath (principal); R05 Cough; N39.0 Urinary tract infection, site not specified; R91.1 Solitary pulmonary nodule; Z20.822 Contact with and (suspected) exposure to COVID-19; I10 Essential (primary) hypertension
CPT/HCPCS: 93005; 87040 ×2; 87088; 85025; 87086; 80048; 36415; 83735; 85610; 85379; 80076; 83605; 81003; 84484; 83690; 84145; 83880; 0240U; 71275; 71045; 99284; Q9967; J7030

== ENCOUNTER 2021-09-28 01:57 | Emergency (ER) | payer OTHER, MEDICARE ==
--- OUTSIDE RECORDS SUMMARY | 2021-09-28 02:01 | XMS REPORT | Continuity of Care Document ---
:1950 Author Organization [facility] t Address [address] [place] [address] Care Team Providers Name Role Phone Dequan Andrade MD Primary Care Physician NEVAEH Attending Clinician Unavailable Rupert LINCOLN Attending Clinician Unavailable Payers Payer Name Policy Type Policy Effective Date Expiration Date Sour ce Number MEDICAREMEDICARE PART [id number] [facility] [id number] 2016 [place] [id number] 2020 [facility] [id number] 00:00:00 Hos pital 2020-PresentComme rcial Problems Condition [...] Start Date Stop Date Source Natural father [facility] Natural mother Cancer [facility] Social History Social Habit Start Date Stop Date Quantity Comments Source Exposure to Not sure [facility] ([facility] Tobacco use and 2020-12-15 2020-12-15 Never used [facility] exposure 00:00:00 00:00:00 Alcohol intake 2020-12-15 2020-12-15 .14 /d [facility] 00:00:00 00:00:00 Alcohol Comment 2016-10-26 2016-10-26 once a week [facility] 00:00:00 00:00:00 Sex [birth year] [facility] 00:00:00 00:00:00 Smoking Status Start Date Stop Date Source Never smoker [facility] Medications Ordered Filled Start Stop Current Ordering Indication Dosage Frequency Signature Comments Components Source Medication Medication Date Date Medication? Clinician (SIG) Name Name multivitami Yes 1{capsu QD Take 1 M ethodi n capsule 12-15 le} capsule by st 15:07: mouth [facility] 16 daily. l BIOTIN ORAL Yes Take by Met hodi 12-[address] 15:07: [facility] 16 l UNABLE TO Yes [place] 7 Metho di FIND 12-[address] [...] (two) l times a day. Meloxicam Meloxicam 2019-0 2020- No Madhu 1 tablet Common 6-16 07-16 [facility] 00:00: 00:00 - [facility] 00 :00 [facility] losartan-hy Yes 1{tbl} QD Take 1 Me [...] 00:00: Hospita MEQ CR 00 l tablet Guaifenesin Guaifenesin Yes Madhu not Common -Codeine -Codeine Colon defined [facility] Azithromyci Azithromyci Yes Madhu not Common n n Colon defined [facility] Xiidra Xiidra Yes Madhu not Common Colon defined [facility] Losartan Losartan Yes Madhu not Comm on Potassium-H Potassium-H Colon defined [facility] Amlodipine Amlodipine Yes Madhu not Common Besylate Besylate Colon defined [facility] Klor-Con 10 Klor-Con 10 Yes Madhu not Common Colon defined [facility] Carvedilol Carvedilol Yes Madhu not Common Colon defined [facility] Baby Baby Yes Madhu not Common Aspirin Aspirin Colon defined [facility] Cephalexin Cephalexin Yes Madhu not Common Colon defined [facility] Vital Signs Vital Name Observation Time Observation Value Comments Source Systolic blood 2020-12-15 15:03:00 132 mm[Hg] [facility] pressure Diastolic blood 2020-12-15 15:03:00 73 mm[Hg] [facility] pressure Heart rate 2020-12-15 15:03:00 78 /min [facility] Body height 2020-12-15 15:03:00 162.6 cm [facility] Body weight 2020-12-15 15:03:00 92.715 kg [facility] BMI 2020-12-15 15:03:00 35.09 kg/m2 [facility] Procedures Procedure Date / Time Performing Clinician Source Performed THYROID PEROXIDASE 2020-12-15 15:35:00 Kiki Raygoza [facility] ANTIBODY COMPREHENSIVE METABOLIC 2020-12-15 15:35:00 Kiki Raygoza [facility] PANEL T4, FREE 2020-12-15 15:35[facility] 2020-12-15 15:35:00 Kiki Raygoza [facility] HORMONE US THYROID 2020-11-25 18:28:53 Kiki Raygoza [facility] Plan of Care Planned Activity Planned Date Details Comments Source Future Scheduled Test Hepatitis C screening [facility] (procedure) [code = 483581186] Future Scheduled Test BREAST CANCER SCREENING [facility] [code = BREAST CANCER SCREENING] Future Scheduled Test COLONOSCOPY SCREENING [facility] [code = COLONOSCOPY SCREENING] Future Scheduled Test SHINGLES VACCINES (#1) [facility] [code = SHINGLES VACCINES (#1)] Future Scheduled Test 65+ PNEUMOCOCCAL Me [facility] VACCINE (1 of 1 - PPSV23) [code = 65+ PNEUMOCOCCAL VACCINE (1 of 1 - PPSV23)] Future Scheduled Test INFLUENZA VACCINE [code [facility] = INFLUENZA VACCINE] Encounters Start End Encounter Admission Attending Care Care Encounter Source Date/Time Date/Time Type Type Clinicians Facility Department ID 2021-06-14 [facility] [id number] Common 13:10:49 [id number] [facility] 2021-06-14 [facility] [id number] Common 12:56:27 [id number] [facility] 2021-06-14 Out[facility] [id number] Common 12:29:31 [id number] [facility] 2021-06-14 [facility] [id number] Common 12:07:04 [id number] [facility] 2021-06-14 [facility] [id number] Common 12:06:09 [id number] [facility] 2021-06-14 Outpatient [facility] [id number] Common 12:00:39 [id number] [facility] 2021-06-14 Outpatient [facility] [id number] Common 11:59:51 [id number] [facility] 2021-06-14 Outpatient [facility] [id number] Common 11:26:52 [id number] [facility] 2021-07-11 2021-07-11 ambulatory [facility] [id number] Common 00:00:00 00:00:00 [facility] 2021-06-19 2021-06-19 ambulatory [facility] [id number] Common 00:00:00 00:00:00 [facility] 2021-06-08 2021-06-08 ambulatory [facility] [id number] Common 00:00:00 00:00:00 [facility] 2021-05-30 2021-05-30 ambulatory [facility] [id number] Common 00:00:00 00:00:00 [facility] 2020-12-15 2020-12-15 Office PETAK, 1.2.840.1 [id number] 00:00:00 00:00:00 Visit KIKI 03521.1.1 [address] .3.827601 .8 2020-12-15 2020-12-15 Outpatient PETAK, [facility] [id number] [address] 00:00:00 00:00:00 KIKI [address] 2020-12-15 2020-12-15 Travel 1.2.840.1 [id number] [id number] [facility] 00:00:00 00:00:[address] 3.430.2.7 0.2.7.3.698 Ho spita .3.247421 084.8 l .8 2020-11-25 2020-11-25 Travel 1.2.840.1 1.2.780.021 [id number] [facility] 00:00:00 00:00:[address] 3.430.2.7 0.2.7.3.698 Ho spita .3.791844 084.8 l .8 2020-11-14 2020-11-14 Orders Rupert, 1.2.840.1 [id number] [facility] 00:00:00 00:00:00 Only Addis [address]12.1.[address] 3.430.2.7 Hospit a .3.077046 l .8 2020-11-11 2020-11-11 Telephone Rupert, 1.2.840.1 [id number] [facility] 00:00:00 00:00:[address] 3.430.2.7 Hospit a .3.474465 l .8 2020-11-07 2020-11-07 Outpatient [facility] [id number] Common 00:00:00 00:00:00 [facility] 2020-11-01 2020-11-01 Outpatient [facility] [id number] Common 00:00:00 00:00:00 [facility] 2020-10-24 2020-10-24 Outpatient [facility] [id number] Common 00:00:00 00:00:00 [facility] 2020-09-12 2020-09-12 Outpatient [facility] [id number] Common 00:00:00 00:00:00 [facility] 2020-09-12 2020-09-12 Outpatient [facility] [id number] Common 00:00:00 00:00:00 [facility] 2020-09-06 2020-09-06 Outpatient [facility] [id number] Common 00:00:00 00:00:00 [facility] 2020-06-28 2020-06-28 Outpatient [facility] [id number] Common 00:00:00 00:00:00 [facility] 2020-04-21 2020-04-21 Outpatient [facility] [id number] Common 00:00:00 00:00:00 [facility] 2020-04-07 2020-04-07 Outpatient [facility] [id number] Common 00:00:00 00:00:00 [facility] 2020-04-01 2020-04-01 Outpatient [facility] [id number] Common 00:00:00 00:00:00 [facility] 2020-03-21 2020-03-21 Outpatient [facility] [id number] Common 00:00:00 00:00:00 [facility] 2020-03-03 2020-03-03 Outpatient [facility] [id number] Common 00:00:00 00:00:00 [facility] 2019-11-03 2019-11-03 [id number] Common 14:30:00 14:30:00 [facility] Results This patient has no known results.
[2021-09-28 03:09] LABS: Absolute Lymphocytes (CBC) 1.6 K/uL (0.7-4.9); Hematocrit 38.2 % (36.0-45.0); Lymphocytes % 26.6 % (15.3-44.8); RBC Red Blood Cell Count 4.44 M/uL (3.86-4.86)
[2021-09-28] MEDS ORDERED: MORPHINE 2 MG/ML SYR ONE (03:11)
[2021-09-28] MEDS ORDERED: ONDANSETRON 4 MG/2 ML VIAL ONE (03:11)
[2021-09-28] MEDS ORDERED: NA CHLORIDE 0.9% 500 ML ONE (03:12)
[2021-09-28] MEDS ORDERED: FAMOTIDINE 20 MG TAB ONE (03:12)
[2021-09-28 03:31] LABS: Albumin 3.2 g/dL (3.4-5.0); Bilirubin Direct 0.1 mg/dL (0-0.2); Bilirubin Total 0.3 mg/dL (0.2-1.0); Magnesium 2.3 mg/dL (1.8-2.4); Potassium 3.3 mmol/L (3.5-5.1); Protein, Total 6.9 g/dL (6.4-8.2); Troponin High Sensitivity 7.1 pg/mL (<58.9)
[2021-09-28 03:44] LABS: Urine Blood 2+ (Negative); Urine Glucose Negative (Negative); Urine Protein Trace (Negative); Urine Specific Gravity 1.015 (1.005-1.030); Urine pH 7.5 (5.0-7.0)
[2021-09-28 04:01] LABS: Protime INR 0.98
[2021-09-28 04:22] LABS: Urine Bacteria <20 /HPF (<20); Urine RBC 20-50 /HPF (NONE SEEN)
--- NOTE | 2021-09-28 05:31 | ER ---
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 Coronavirus screen: At this time, the client does not indicate any symptoms associated with coronavirus-19. Ebola Screen: No symptoms or risks identified at this time. Initial Sepsis Screen: Does the patient meet any 2 criteria? No. Patient's initial sepsis screen is negative. Does the patient have a suspected source of infection? No. Patient's initial sepsis screen is negative. Risk Assessment: Do you want to hurt yourself or someone else? Patient reports no desire to harm self or others. Onset of symptoms was September 28, 2021. 02:22 Method Of Arrival: Ambulatory lp1 Historical: - Allergies: 02:24 No Known Allergies; lp1 - Home Meds: 02:24 carvedilol 25 mg Oral tab 1 tab [Active]; amlodipine 10 mg tab 1 tab once daily lp1 [Active]; hydralazine 10 mg Oral tab [Active]; losartan-hydrochlorothiazide 100-12.5 mg oral tab 1 tab once daily [Active]; potassium chloride 10 mEq Oral cpER 1 cap once daily [Active]; - PMHx: 02:24 Hypertension; lp1 - PSHx: 02:24 Knee Surgery; lp1 - Immunization history:: Adult Immunizations up to date. - Social history:: Smoking status: Patient denies any tobacco usage or history of. - Family history:: not pertinent. Screenin:03 Abuse screen: Denies threats or abuse. Denies injuries from another. Nutritional sm5 screening: No deficits noted. Tuberculosis screening: No symptoms or risk factors identified. Fall Risk None identified. Assessment: 03:03 General: Appears in no apparent distress. Behavior is cooperative. Pain: Complains of sm5 pain in right lower quadrant and right upper quadrant. Neuro: No deficits noted. Vaz Agitation-Sedation Scale (RASS): 0 - Alert and Calm Level of Consciousness is awake, alert, obeys commands, Oriented to person, place, time, situation. Cardiovascular: No deficits noted. Capillary refill < 3 seconds Patient's skin is warm and dry. Rhythm is sinus rhythm. Respiratory: No deficits noted. Airway is patent Trachea midline Respiratory effort is even, unlabored. GI: Abdomen is non-distended, obese, Bowel sounds present X 4 quads. Abd is soft. 04:23 Reassessment: Patient states feeling better. sm5 06:15 Reassessment: No changes from previously documented assessment. Patient and/or family 5 updated on plan of care and expected duration. Pain level reassessed. Vital Signs: 02:22 BP 159 / 89; Pulse 85; Resp 18; Temp 98(O); Pulse Ox 97% on R/A; Weight 88.45 kg (R); lp1 Height 5 ft. 3 in. (160.02 cm); Pain 6/10; 04:22 BP 140 / 82; Pulse 90; Resp 17; Pulse Ox 97% on R/A; sm5 06:15 BP 129 / 72; Pulse 88; Resp 17; Pulse Ox 97% on R/A; sm5 02:22 Body Mass Index 34.54 (88.45 kg, 160.02 cm) lp1 ED Course: 02:01 Patient arrived in ED. kz 02:18 Triage completed. lp1 02:20 Wilner Vásquez MD is Attending Physician. barak 02:24 Arm band placed on. lp1 02:39 XRAY Chest (1 view) In Process Unspecified. EDMS 02:42 Ayesha Landry, ISHA is Primary Nurse. sm5 03:02 SARS-COV-2 RT PCR (Document "Date of Onset" if Symptomatic) Sent. sm5 03:02 Lipase Sent. sm5 03:02 Basic Metabolic Panel Sent. sm5 03:02 CBC with Diff Sent. sm5 03:02 LFT's Sent. sm5 03:02 Magnesium Sent. sm5 03:02 NT PRO-BNP Sent. sm5 03:02 Troponin HS Sent. sm5 03:03 Inserted saline lock: 20 gauge in right antecubital area, using aseptic technique. sm5 Blood collected. 03:04 Patient has correct armband on for positive identification. Placed in gown. Bed in low sm5 position. Call light in reach. Side rails up X2. 03:26 US Abdomen Limited In Process Unspecified. EDMS 03:47 Urine Microscopic Only Sent. sm5 04:07 Urine Culture Sent. sm5 04:38 CT Abd/Pelvis - IV Contrast Only In Process Unspecified. EDMS 05:31 Dorian Andrade MD is Referral Physician. [facility] 06:16 No provider procedures requiring assistance completed. IV discontinued, intact, sm5 bleeding controlled, No redness/swelling at site. Pressure dressing applied. Administered Medications: 04:06 Drug: NS 0.9% 500 ml Route: IV; Rate: bolus; Site: right forearm; sm5 05:00 Follow up: IV Status: Completed infusion; IV Intake: 500ml sm5 04:06 Drug: morphine 2 mg Route: IVP; Site: right forearm; sm5 05:52 Follow up: Response: Pain is decreased sm5 04:06 Drug: Zofran (Ondansetron) 4 mg Route: IVP; Site: right forearm; sm5 05:52 Follow up: Response: No adverse reaction sm5 04:07 Drug: Pepcid (famotidine) 20 mg Route: PO; sm5 06:05 Follow up: Response: No adverse reaction sm5 05:51 Drug: Rocephin (cefTRIAXone) 1 grams Route: IV; Rate: per protocol; Site: right forearm;sm5 06:05 Follow up: Response: No adverse reaction; IV Status: Completed infusion; IV Intake: [id number] 05:52 Drug: Cipro (ciprofloxacin) 500 mg Route: PO; sm5 06:05 Follow up: Response: No adverse reaction 5 Medication: 03:04 VIS not applicable for this client. sm5 Intake: 05:00 IV: 500ml; Total: 500ml. sm5 06:05 IV: 50ml; Total: 550ml. 5 Outcome: 05:31 Discharge ordered by . barak 06:16 Discharged to home ambulatory, with family. sm5 06:16 Condition: stable 06:16 Discharge instructions given to patient, family, Instructed on discharge instructions, follow up and referral plans. medication usage, Demonstrated understanding of instructions, follow-up care, medications, Prescriptions given X 4. 06:16 Patient left the ED. sm5 Addendum: 10/01/2021 07:14 Addendum: Culture Results: Positive urine culture. No further action required. Bacteria e b sensitive to prescribed antibiotic. Signatures: Dispatcher [employer] EDWilner Shen MD MD cha Pena, Laura, RN RN lp1 Sharla Campos Sarah RN RN sm5 Candi Alarcon
--- NOTE | 2021-09-28 05:32 | EDPHYS ---
Physician Documentation [facility] Name: Peg Henriquez Age: 71 yrs Sex: Female : 1950 Arrival Date: 09/28/2021 Time: 02:01 Bed 13 Private MD: ED Physician Wilner Vásquez HPI: 09/28 02:59 This 71 yrs old Black Female presents to ER via Ambulatory with complaints of Abdominal barak Pain - Right sided. 02:59 The patient presents with abdominal pain in the upper abdomen. Onset: The barak symptoms/episode began/occurred this morning, last night. The symptoms do not radiate. Associated signs and symptoms: none. The symptoms are described as crampy. Modifying factors: The symptoms are alleviated by nothing, the symptoms are aggravated by nothing. Severity of pain: At its worst the pain was moderate in the emergency department the pain has resolved. The patient has not experienced similar symptoms in the past. Historical: - Allergies: 02:24 No Known Allergies; lp1 - Home Meds: 02:24 carvedilol 25 mg Oral tab 1 tab [Active]; amlodipine 10 mg tab 1 tab once daily lp1 [Active]; hydralazine 10 mg Oral tab [Active]; losartan-hydrochlorothiazide 100-12.5 mg oral tab 1 tab once daily [Active]; potassium chloride 10 mEq Oral cpER 1 cap once daily [Active]; - PMHx: 02:24 Hypertension; lp1 - PSHx: 02:24 Knee Surgery; lp1 - Immunization history:: Adult Immunizations up to date. - Social history:: Smoking status: Patient denies any tobacco usage or history of. - Family history:: not pertinent. ROS: 02:59 Constitutional: Negative for fever, chills, and weight loss, Eyes: Negative for injury, barak pain, redness, and discharge, ENT: Negative for injury, pain, and discharge, Neck: Negative for injury, pain, and swelling, Cardiovascular: Negative for chest pain, palpitations, and edema, Respiratory: Negative for shortness of breath, cough, wheezing, and pleuritic chest pain, Back: Negative for injury and pain, : Negative for injury, bleeding, discharge, and swelling, MS/Extremity: Negative for injury and deformity, Skin: Negative for injury, rash, and discoloration, Neuro: Negative for headache, weakness, numbness, tingling, and seizure, Psych: Negative for depression, anxiety, suicide ideation, homicidal ideation, and hallucinations, Allergy/Immunology: Negative for hives, rash, and allergies, Endocrine: Negative for neck swelling, polydipsia, polyuria, polyphagia, and marked weight changes. 02:59 Abdomen/GI: Positive for abdominal pain, of the right upper quadrant and right lower quadrant. Exam: 02:59 Constitutional: This is a well developed, well nourished patient who is awake, alert, barak and in no acute distress. Head/Face: Normocephalic, atraumatic. Eyes: Pupils equal round and reactive to light, extra-ocular motions intact. Lids and lashes normal. Conjunctiva and sclera are non-icteric and not injected. Cornea within normal limits. Periorbital areas with no swelling, redness, or edema. ENT: Nares patent. No nasal discharge, no septal abnormalities noted. Tympanic membranes are normal and external auditory canals are clear. Oropharynx with no redness, swelling, or masses, exudates, or evidence of obstruction, uvula midline. Mucous membranes moist. Neck: Trachea midline, no thyromegaly or masses palpated, and no cervical lymphadenopathy. Supple, full range of motion without nuchal rigidity, or vertebral point tenderness. No Meningismus. Chest/axilla: Normal chest wall appearance and motion. Nontender with no deformity. No lesions are appreciated. Cardiovascular: Regular rate and rhythm with a normal S1 and S2. No gallops, murmurs, or rubs. Normal PMI, no JVD. No pulse deficits. Respiratory: Lungs have equal breath sounds bilaterally, clear to auscultation and percussion. No rales, rhonchi or wheezes noted. No increased work of breathing, no retractions or nasal flaring. Back: No spinal tenderness. No costovertebral tenderness. Full range of motion. Female : Normal external genitalia. Skin: Warm, dry with normal turgor. Normal color with no rashes, no lesions, and no evidence of cellulitis. MS/ Extremity: Pulses equal, no cyanosis. Neurovascular intact. Full, normal range of motion. Neuro: Awake and alert, GCS 15, oriented to person, place, time, and situation. Cranial nerves II-XII grossly intact. Motor strength 5/5 in all extremities. Sensory grossly intact. Cerebellar exam normal. Normal gait. Psych: Awake, alert, with orientation to person, place and time. Behavior, mood, and affect are within normal limits. 02:59 Abdomen/GI: Inspection: distension, that is mild, Bowel sounds: active, Palpation: mild abdominal tenderness, in the right upper quadrant and right lower quadrant. 03:15 ECG was reviewed by the Attending Physician. [facility] Vital Signs: 02:22 BP 159 / 89; Pulse 85; Resp 18; Temp 98(O); Pulse Ox 97% on R/A; Weight 88.45 kg (R); lp1 Height 5 ft. 3 in. (160.02 cm); Pain 6/10; 04:22 BP 140 / 82; Pulse 90; Resp 17; Pulse Ox 97% on R/A; sm5 06:15 BP 129 / 72; Pulse 88; Resp 17; Pulse Ox 97% on R/A; sm5 02:22 Body Mass Index 34.54 (88.45 kg, 160.02 cm) lp1 MDM: 02:20 Patient medically screened. barak 03:02 Differential diagnosis: bowel obstruction, cholecystitis, Cholelithiasis, barak diverticulitis, gastritis, gastroesophageal reflux disease, Irritable bowel syndrome, non-specific abd pain, pancreatitis, Peptic Ulcer Disease, Pyelonephritis, Ureterolithiasis, urinary tract infection. Data reviewed: vital signs, nurses notes, lab test result(s), EKG, radiologic studies, CT scan, plain films. Data interpreted: residential monitor: rate is 97 beats/min, rhythm is regular, Pulse oximetry: on room air is 97 %. Test interpretation: by ED physician or midlevel provider: ECG, plain radiologic studies. Counseling: I had a detailed discussion with the patient and/or guardian regarding: the historical points, exam findings, and any diagnostic results supporting the discharge/admit diagnosis, lab results, radiology results. 09/28 02:23 Order name: Basic Metabolic Panel; Complete Time: 03:42 [facility] 09/28 02:23 Order name: CBC with Diff; Complete Time: 03:42 [facility] 09/28 02:23 Order name: LFT's; Complete Time: 03:42 [facility] 09/28 02:23 Order name: Magnesium; Complete Time: 03:42 [facility] 09/28 02:23 Order name: NT PRO-BNP; Complete Time: 03:42 [facility] 09/28 02:23 Order name: PT-INR; Complete Time: 05:28 [facility] 09/28 02:23 Order name: Troponin HS; Complete Time: 03:42 [facility] 09/28 02:23 Order name: XRAY Chest (1 view) [facility] 09/28 02:23 Order name: Lipase; Complete Time: 03:42 [facility] 09/28 02:23 Order name: Urine Culture [facility] 09/28 02:23 Order name: CT Abd/Pelvis - IV Contrast Only [facility] 09/28 02:23 Order name: SARS-COV-2 RT PCR (Document "Date of Onset" if Symptomatic); Complete Time: barak :09/28 03:44 Order name: Urine Dipstick-Ancillary; Complete Time: 03:46 EDMS 09/28 03:45 Order name: Urine Microscopic Only; Complete Time: 05:28 ds4 09/28 02:23 Order name: EKG; Complete Time: 02:24 [facility] 09/28 02:23 Order name: Cardiac monitoring; Complete Time: 03:02 [facility] 09/28 02:23 Order name: EKG - Nurse/Tech; Complete Time: 03:02 [facility] 09/28 02:23 Order name: IV Saline Lock; Complete Time: 03:02 [facility] 09/28 02:23 Order name: Labs collected and sent; Complete Time: 03:45 [facility] 09/28 02:23 Order name: O2 Per Protocol; Complete Time: 03:02 [facility] 09/28 02:23 Order name: O2 Sat Monitoring; Complete Time: 03:02 [facility] 09/28 02:23 Order name: Urine Dipstick-Ancillary (obtain specimen); Complete Time: 03:44 [facility] 09/28 02:59 Order name: US Abdomen Limited [facility] EC:15 Rate is 79 beats/min. Rhythm is regular. QRS [place] is Normal. [place] interval is normal. QRS barak interval is normal. QT interval is normal. No Q waves. T waves are Normal. No ST changes noted. Clinical impression: NSR w/ Non-specific ST/T Changes and No evidence of ischemia. Interpreted by me. Reviewed by me. Administered Medications: 04:06 Drug: NS 0.9% 500 ml Route: IV; Rate: bolus; Site: right forearm; sm5 05:00 Follow up: IV Status: Completed infusion; IV Intake: 500ml sm5 04:06 Drug: morphine 2 mg Route: IVP; Site: right forearm; sm5 05:52 Follow up: Response: Pain is decreased 5 04:06 Drug: Zofran (Ondansetron) 4 mg Route: IVP; Site: right forearm; sm5 05:52 Follow up: Response: No adverse reaction sm5 04:07 Drug: Pepcid (famotidine) 20 mg Route: PO; sm5 06:05 Follow up: Response: No adverse reaction 5 05:51 Drug: Rocephin (cefTRIAXone) 1 grams Route: IV; Rate: per protocol; Site: right forearm;sm5 06:05 Follow up: Response: No adverse reaction; IV Status: Completed infusion; IV Intake: [id number] 05:52 Drug: Cipro (ciprofloxacin) 500 mg Route: PO; sm5 06:05 Follow up: Response: No adverse reaction 5 Disposition Summary: 09/28/21 05:31 Discharge Ordered Location: Home barak Problem: new barak Symptoms: have improved barak Condition: Stable barak Diagnosis - Abdominal pain, unspecified barak - Hypokalemia barak - Essential (primary) hypertension barak - UTI/ Urinary tract infection, site not specified barak Followup: barak - With: Private Physician - When: 2 - 3 days - Reason: Recheck today's complaints, Continuance of care, Re-evaluation by your physician Followup: barak - With: - When: 2 - 3 days - Reason: Recheck today's complaints, Continuance of care, Re-evaluation by your physician Discharge Instructions: - Discharge Summary Sheet barak - Abdominal Pain, Adult barak - Potassium Content of Foods barak - Hypertension, Adult barak - Urinary Tract Infection, Adult barak - Urinary Tract Infection, Adult, Trnz-[id number] barak - Abdominal Pain, Adult, Crpq-tb-Hqef barak - Hypertension, Adult, [id number]-bs-Tgmc barak - How to Take Your Blood Pressure, Enbh-do-Cvoq barak - Hypokalemia barak - Managing Your Hypertension barak Forms: - Medication Reconciliation Form barak - Thank You Letter barak - Antibiotic Education barak - Prescription Opioid Use barak - Work release form 5 Prescriptions: - Pepcid 20 mg Oral Tablet - take 1 tablet by ORAL route every 12 hours for 15 days; 30 tablet; Refills: 0, barak Product Selection Permitted - Zofran 4 mg Oral Tablet - take 1 tablet by ORAL route every 12 hours As needed; 20 tablet; Refills: 0, barak Product Selection Permitted - Cipro 250 mg Oral Tablet - take 1 tablet by ORAL route every 12 hours; 14 tablet; Refills: 0, Product barak Selection Permitted - dicyclomine 20 mg Oral Tablet - take 1 tablet by ORAL route 4 times per day; 28 tablet; Refills: 0, Product barak Selection Permitted Signatures: Dispatcher [employer] Wilner Salgado MD MD cha Pena, Laura, RN RN lp1 Fady Lee FNP-C [facility]1 Ayesha Landry RN RN sm5
[2021-09-28] MEDS ORDERED: CIPROFLOXACIN HCL 500 MG TAB ONE (05:51)
[2021-09-28] MEDS ORDERED: NA CHLORIDE 0.9% 50 ML ONE (05:52)
[2021-09-28] MEDS ORDERED: CEFTRIAXONE 1000 MG/VIAL ONE (05:52)
[2021-09-28 06:22] VITALS: TEMP 98; O2SAT 97
[2021-09-28 06:25] VITALS: BP 129/72
--- NOTE | 2021-09-28 07:43 | EKG ---
Test Date: 2021-09-28 Test Time: 02:53:05 Chef Passenger Vessel: JABARI MEASUREMENT RESULTS: Intervals: Rate: 79 FL: 170 QRSD: 80 QT: 392 QTc: 449 [place]: P: 57 FL: 170 QRS: 19 T: 46 INTERPRETIVE STATEMENTS: Normal sinus rhythm Normal ECG Compared to ECG 12/16/2020 10:30:17 No significant changes Electronically Signed On 09-28-21 07:42:50 CDT by Dave Garcia
--- NOTE | 2021-09-28 11:29 | RAD REPORT ---
EXAM DESCRIPTION: CT - Abdomen Pelvis W Contrast - 09/28/2021 5:45 am CLINICAL HISTORY: 71 years Female Abdominal pain, acute, nonlocalized TECHNIQUE: Axial CT imaging of the abdomen and pelvis was performed following the administration of intravenous contrast.. Oral contrast was not administered. Sagittal and coronal reconstructed image s were then performed. The CT study is performed according to ALARA (as low as reasonably achievabl e) or ALARA/IMAGE GENTLY, with automatic adjustment of mA and/or kV according to patient size. Performed on: 09/28/2021 at 4:01 AM. COMPARISON: 03/07/2019 FINDINGS: Lung bases: The lung bases are clear. There is left basilar atelectasis and/or fibrosis. Liver: The liver is normal in size and configuration. No focal hepatic abnormalities are identified. Liver attenuation is within normal limits. The hepatic and portal veins are patent. Spleen: The spleen is normal is size, configuration and attenuation. Gallbladder and bile duct: The gallbladder is well distended and unremarkable. There is no biliary ductal dilatation. Pancreas: The pancreas is grossly normal in size and configuration. Adrenal Glands: The adrenal glands are normal in size and configuration. Kidneys: The kidneys are normal in size and configuration. There is no evidence of hydronephrosis. Th ere is no evidence of nephrolithiasis. No definite solid or cystic renal mass lesions are identified. Stomach: The stomach is grossly normal. There is no definite hiatal hernia. Bowel: The bowel gas pattern is non specific and non obstructive. Appendix: The appendix is normal. Free air: There is no evidence of free air. Free fluid: There is no evidence of free fluid. Vasculature: The aorta is normal in caliber and contour. The inferior vena cava is grossly unremarkab le. Lymphadenopathy: No pathologic lymphadenopathy is identified. Bladder: The bladder is well distended and smooth in contour. Reproductive: The uterus is surgically absent. Bones: No acute osseous abnormalities are identified. Soft tissues: No acute soft tissue abnormalities are identified. There is a small fat-containing vent ral umbilical hernia. IMPRESSION: 1. No evidence of acute intra-abdominal or intrapelvic pathology. There is no evidence of bowel obstruction, acute gallbladder pathology or urinary tract obstruction. 2. Small fat-containing ventral umbilical hernia. 3. Status post hysterectomy. Electronically signed by: Pamella Powell DO 09/28/2021 5:22 AM CDT Due to temporary technical issues with the PACS/Fluency reporting system, reports are being signed by the in house radiologists without review as a courtesy to insure prompt reporting. The interpreting radiologist is fully responsible for the content of the report.
--- NOTE | 2021-09-28 12:25 | RAD REPORT ---
EXAM DESCRIPTION: US - Abdomen Exam Limited - 09/28/2021 4:31 am CLINICAL HISTORY: 71 years Female ABD PAIN TECHNIQUE: Limited sonographic imaging of the right upper quadrant was performed on 09/28/2021 at 3: 17 AM. Comparison: CT abdomen and pelvis performed on 09/28/2021 at 4:02 AM. FINDINGS: Sonographic imaging of the right upper quadrant reveals the gallbladder to be well distend ed. There is no evidence of gallbladder wall thickening or pericholecystic fluid. There is no evidenc e of cholelithiasis or sludge. The gallbladder wall measures approximately 1.7 mm in diameter. The co mmon bile duct measures approximately 2.3 mm in diameter. There is no evidence of biliary ductal dila tation. No sonographic Bertrand sign was detected by the technologist. IMPRESSION: No evidence of acute gallbladder pathology. Electronically signed by: Pamella Powell DO 09/28/2021 4:21 AM CDT Due to temporary technical issues with the PACS/Fluency reporting system, reports are being signed by the in house radiologists without review as a courtesy to insure prompt reporting. The interpreting radiologist is fully responsible for the content of the report.
--- NOTE | 2021-09-28 13:43 | RAD REPORT ---
EXAM DESCRIPTION: RAD - Chest Single View - 09/28/2021 2:37 am CLINICAL HISTORY: 71 years, Female, ABDOMINAL DISTENTION COMPARISON: None FINDINGS: Single view of the chest was obtained portable. No prior films are available for compariso n. The cardiomediastinal silhouette demonstrate to be unremarkable. For heart is not enlarged. The thoracic aorta is unremarkable. Costophrenic angles are sharp. No areas of consolidation or masses are seen. The rest of the soft tissue and bony structures demonstrate to be unremarkable. IMPRESSION: No acute cardiopulmonary disease. Electronically signed by: James Dinh MD 09/28/2021 3:01 AM CDT Due to temporary technical issues with the PACS/Fluency reporting system, reports are being signed by the in house radiologists without review as a courtesy to insure prompt reporting. The interpreting radiologist is fully responsible for the content of the report.
== END 2021-09-28 06:16 | disposition home or self-care (01) ==
LOC: ER 01:57
DX: N39.0 Urinary tract infection, site not specified (principal); E87.6 Hypokalemia; I10 Essential (primary) hypertension; Z20.822 Contact with and (suspected) exposure to COVID-19
CPT/HCPCS: 96361; 93005; 87088; 85025; 87086; 80048; 36415; 83735; 85610; 80076; 87077; 87186; 84484; 83690; 83880; 74177; 71045; 76705; 96375; 96374; 99284; U0003; Q9967; J2270; J7040; J2405; 81003; 81015